=== PATIENT | female | born 1955 | race Caucasian/White ===

== ENCOUNTER 2018-07-26 07:20 | Inpatient (IN) ==
[2018-07-26] MEDS ORDERED: IOPAMIDOL 100 ML BOTTLE IV ONE (07:21)
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
[2018-07-26] MEDS ORDERED: ALPRAZolam 0.5 MG TABLET PO ONE (07:43)
[2018-07-26] MEDS ORDERED: PROMETHAZINE 25 MG/ML VIAL IV ONE (07:43)
[2018-07-26] MEDS ORDERED: LACTATED RINGERS 1,000 ML IV ONE (07:43)
[2018-07-26] MEDS ORDERED: cloNIDine TTS 2 1 PATCH PATCH TD ONE (07:45)
[2018-07-26 08:29] LABS: Basophils # (Auto) 0.1 K/mcL (0.0-0.3); Basophils % (Auto) 0.7 % (0.0-2.0); Eosinophils # (Auto) 0.1 K/mcL (0.0-0.7); Eosinophils % (Auto) 0.8 % (0.0-7.0); Granulocytes % (Auto) 77.4 % (38.0-78.0); Lymphocytes # (Auto) 2.2 K/mcL (1.5-4.8); Lymphocytes % (Auto) 17.6 % (15.5-49.0); Mean Cell Volume 93.2 fL (80.0-100.0); Mean Corpuscular HGB Conc 34.3 g/dL (31.0-36.0); Mean Corpuscular Hemoglobin 31.9 pg (26.0-34.0); Monocytes # (Auto) 0.4 K/mcL (0.1-0.9); Monocytes % (Auto) 3.5 % (1.0-12.0); Platelet Count 350 K/mcL (140-440); RBC 4.19 M/mcL (4.00-5.20); Red Cell Distribution Width 13.9 % (11.5-14.5)
[2018-07-26] MEDS ORDERED: ONDANSETRON 4 MG/2 ML VIAL IV ONE ×2 (08:36→10:06)
[2018-07-26 08:50] LABS: ALT/SGPT 8 U/l (0-40); Albumin 4.5 gm/dL (3.2-5.2); Albumin/Globulin Ratio 1.5 (1.0-2.3); Alkaline Phosphatase 83 U/L (39-117); Blood Urea Nitrogen 8 mg/dl (8-23)
[2018-07-26] MEDS ORDERED: buPROPion 100 MG TABLET PO ONE (08:50)
[2018-07-26] MEDS ORDERED: NICOTINE 21 MG PATCH TOPICAL ONE (08:51)
[2018-07-26 10:34] LABS: Appearance,Urine CLEAR; Bilirubin,Urine NEG (NEG); Color,Urine YELLOW; Glucose,Urine (UA) NEGATIVE (NEG); Leukocyte Esterase,Urine NEG /uL (NEG); Protein,Urine NEG (NEG); Specific Gravity,Urine 1.013 (1.000-1.035); Urine Blood NEG mg/dL (<0.03); Urobilinogen,Urine NEG (NEG)
[2018-07-26] MEDS ORDERED: PROCHLORPERAZINE 10 MG/2 ML VIAL IV ONE (10:59)
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
[2018-07-26] MEDS ORDERED: SCOPOLAMINE 1 PATCH PATCH TOPICAL ONE (12:51)
--- NOTE | 2018-07-26 14:15 | Ultrasound Report ---
History: Right upper quadrant pain FINDINGS: Within the lumen of the gallbladder there are three small oval-shaped noncalcified nodules adherent to the wall. Two of them are located anteriorly and measured 2 x 3 mm each. One is located posteriorly and also measures 2 x 3 mm. The wall is 2 mm in thickness and the patient was nontender while scanning over the gallbladder. No calcified stones or sludge are present within the lumen. Common bile duct measures up to 4 mm which is normal. The liver is normal in size and homogeneous. Doppler shows normal blood flow in the hepatic and portal veins. The pancreas is normal in size shape and contour. No ascites is present. IMPRESSION: Three small polyps within the gallbladder. The exam is otherwise normal. Dr. Mejia was called with the results Interpreted and Authenticated by: Víctor Demarco 07/26/18
[2018-07-26] MEDS ORDERED: HALOPERIDOL LACTATE 5 MG/ML VIAL IV ONE (14:25)
[2018-07-26] MEDS ORDERED: ACETAMINOPHEN 325 MG TABLET PO ONE (18:44)
--- NOTE | 2018-07-26 18:47 | Internal Med History&Physical ---
Medical - H&P: [facility] Patient information: Note initiated : 07/26/18 at 6:43 pm Service Date, if different from initiated Date: [] Patient: Nida Ramirez a 63 y/o F admitted on for anxiety. Chief Complaint: [] History of present illness: Ms. Ramirez is a 63 year old F With history of chronic pain anxiety who comes in with nausea vomiting intractable progressing since Sunday. She said she woke up this morning she typically does very nauseous could not get it under control. She said it started Sunday. With no inciting causes that she is aware of. She says she has had nausea vomiting more or less chronically since being taken off Dilaudid and diazepam and Flexeril in December when she ran out of her medications because she stopped going to her primary care provider and is trying to find a new one. In the ER they are unable to get her nausea vomiting under control with multiple medications she is found to have a little bit of lactate elevation likely from all the nausea vomiting fluid deprivation. A CT abdomen pelvis is done which is no acute pathology. She does report early satiety may be some bloating. She denies any vertigo no diarrhea she has diffuse achy abdominal pain she reports mostly from muscle pain from vomiting. She has been able to keep anything down for several days. She Uses marijuana daily. She has not been on any anxiety medications at home or pain medications at home for some time. She seems to have some temporary improvement while I was visiting her in the ED at this point. Review of Systems: Positive for nausea vomiting headache fever abdominal pain that she attributes to muscle strain. denies chills/chest pain/cough/dyspnea/diarrhea. Per minute 10 point review of systems reviewed and negative Medical - H&P: PMH Medical history: Medical History (Last Reviewed 05/15/18 @ 14:42 by Marciano Wilson PA-C) Gastroenteritis (Acute) HTN (hypertension) (Chronic) Chronic pain Anxiety History of basal cell carcinoma on the scalp Asthma Surgical history: Hysterectomy Shoulder neck surgery Family history Mother diabetes and heart disease Father had skin cancer Social history: One pack per day, is now quitting Denies alcohol use Use marijuana nightly This bursa of Medical - H&P: Meds Home Medications Medication Instructions Recorded Confirmed Type propranolol 80 mg tablet 40 mg PO BID #60 tab 06/13/18 11/23/18 Rx Lisinopril [Zestril] 20 mg PO DAILY 30 Days #30 tab 06/29/18 07/26/18 Rx hydrALAZINE [Apresoline] 10 mg PO TID 30 Days #90 tab 06/29/18 07/26/18 Rx hydrOXYzine HCL [Hydroxyzine HCl] 50 mg PO BID 30 Days #60 tab 06/29/18 Rx Allergies Allergy/AdvReac Type Severity Reaction Status Date / Time baclofen Allergy Intermediate Itching Verified 05/15/18 13:55 morphine Allergy Intermediate Itching Verified 04/28/18 21:10 Sulfa (Sulfonamide Allergy Intermediate Itching Verified 04/28/18 21:09 Antibiotics) codeine Allergy Other Verified 05/15/18 13:55 diphenhydramine Allergy Other Verified 05/15/18 13:55 [From Benadryl] tramadol [From Ultram] Allergy Other Verified 05/15/18 13:55 adhesive tape AdvReac Other Verified 05/15/18 13:55 Medical - H&P: Exam - Constitutional Vitals: Temp Pulse Resp BP Pulse Ox 96.9 F L 83 18 158/78 97 07/26/18 07:21 07/26/18 15:34 07/26/18 07:21 07/26/18 14:46 07/26/18 15:34 Exam: General: Alert, Awake, No acute Distress Eyes/N/T: EOMI, pupils equal round reactive to light, dry mucous membranes Head/Neck: neck supple, normocephalic atraumatic CV: RRR, No murmurs, normal s1/s2 Pulm: Clear b/l, no wheezing/rhonchi/rales Abd: soft, tenderness in the epigastrium that she attributes to muscle strain from vomiting, +BS x4 Ext: no clubbing/cyanosis/edema Neuro: Alert, no focal deficits, moves all extremities Skin: warm/dry Medical - H&P: Reslt - Labs CBC & Chem 7: 07/26/18 07:52 07/26/18 07:52 Labs: Short CBC 07/26/18 Range/Units 07:52 WBC 12.6 H (4.5-11.0) K/mcL Hgb 13.4 (12.0-15.0) g/dL Hct 39.1 (36.0-48.0) % Plt Count 350 (140-440) K/mcL BMP 07/26/18 07:52 Sodium 138 Potassium 3.7 Chloride 100 Carbon Dioxide 20 L BUN 8 Creatinine 0.9 Glucose 133 H Calcium 10.1 Cardiac Enzymes 07/26/18 Range/Units 07:52 Troponin T < 0.01 (0-0.03) ng/ml Liver Function 07/26/18 Range/Units 07:52 Total Bilirubin 0.5 (0.0-1.0) mg/dL AST 14 (0-37) U/l ALT 8 (0-40) U/l Alkaline Phosphatase 83 (39-117) U/L Albumin 4.5 (3.2-5.2) gm/dL Urine 07/26/18 Range/Units 09:49 Urine Color Yellow Urine Appearance Clear Urine pH 8.0 (5.0-9.0) Ur Specific [place] 1.013 (1.000-1.035) Urine Protein Neg (NEG) mg/dL Urine Glucose (UA) Negative (NEG) mg/dL - Impressions Abdominal ultrasound and terminal and pelvis CT unremarkable for any acute pathology Medical - H&P: A/P - Narrative A/P Narrative: A: *Intractable nausea vomiting: Differential includes gastroparesis versus narcotic withdrawal versus cyclic vomiting including cannabis hyperemesis *Severe anxiety: Has been off anxiety medications for some time, unknown if she is obtaining elsewhere *Hypertension: *Chronic pain: Has been off pain medications for some time, unknown if she is obtaining them elsewhere *Tobacco abuse: Now quitting * P: -IV fluid hydration -Antiemetics, amitriptyline and scope patch included -PRN pain medications including Toradol -Gastric emptying study pending -PRN Ativan - - -ppx: Lovenox
[2018-07-26] MEDS ORDERED: AMITRIPTYLINE 25 MG TABLET PO ONE (19:16)
[2018-07-26] MEDS ORDERED: KETOROLAC 30 MG/ML VIAL IV ONE (19:16)
[2018-07-26] MEDS ORDERED: DEXTROSE 5%-1/2NS 1,000 ML IV SCH (19:16)
[2018-07-26] MEDS ORDERED: cloNIDine HCL 0.1 MG TABLET PO PRN (19:16)
[2018-07-26] MEDS ORDERED: PROMETHAZINE 25 MG/ML VIAL IM PRN (19:16)
[2018-07-26] MEDS ORDERED: PROCHLORPERAZINE 25 MG SUPP.RECT PR PRN (19:16)
[2018-07-26] MEDS ORDERED: ONDANSETRON 4 MG/2 ML VIAL IV PRN (19:16)
[2018-07-26] MEDS ORDERED: PROMETHAZINE 25 MG TABLET PO PRN (19:16)
[2018-07-26] MEDS ORDERED: IPRATROPIUM/ALBUTEROL 3 ML AMPUL.NEB NEB PRN (19:16)
[2018-07-26] MEDS: SCOPOLAMINE 1 PATCH PATCH TOPICAL SCH (19:25)
[2018-07-26] MEDS: PROMETHAZINE 25 MG/ML VIAL IV PRN (19:42)
--- NOTE | 2018-07-26 20:26 | Cat Scan Report ---
CLINICAL INFORMATION: History: Upper abdominal pain with nausea and vomiting COMPARISON: None. TECHNIQUE: Following injection of intravenous contrast the patient was scanned during the portal venous phase from the diaphragm through the symphysis pubis. Sagittal and coronal reformats were created.. FINDINGS: The liver and spleen are normal in size and continues. Small hiatus hernia. The gallbladder IMPRESSION: , Adrenals and kidneys are normal. The aorta is normal in caliber. The appendix is borderline thickened measuring up to 7 mm in diameter. There is an appendicolith at the orifice of the appendix. The surrounding fat is not inflamed and there is no abscess or free fluid. The bowel gas pattern is otherwise normal. No evidence of diverticulitis or inflammatory bowel disease. There is no adenopathy or ascites are present within the abdomen or pelvis. Moderate amount calcified plaque is present in the common iliac arteries with plaque also seen in the distal abdominal aorta. 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 IMPRESSION: borderline thickened appendix which could be normal variant or early onset appendicitis. Dr. Mejia was called with the results Interpreted and Authenticated by: Víctor Demarco 07/26/18
[2018-07-26] MEDS: PROPRANOLOL 40 MG TABLET PO SCH (20:36)
[2018-07-26] MEDS: LORazepam 2 MG/ML VIAL IV PRN (20:36)
[2018-07-26] MEDS: hydrOXYzine 25 MG TABLET PO PRN (20:38)
[2018-07-26] MEDS: hydrALAZINE 20 MG/ML VIAL IV PRN (20:39)
[2018-07-26] MEDS: FAMOTIDINE/PF 20 MG/2 ML VIAL IV SCH (20:39)
[2018-07-26] MEDS: hydrALAZINE 10 MG TABLET PO SCH (20:45)
[2018-07-26] MEDS: 0.9 % SODIUM CHLORIDE 10 ML SYRINGE IV SCH (20:45)
[2018-07-26] MEDS: DOCUSATE SODIUM 100 MG CAPSULE PO SCH (20:45)
[2018-07-26 20:47] LABS: Amphetamine Screen,Urine NONE DETECTED (NONDETECTED); Benzodiazepines Screen,Urine NONE DETECTED (NONDETECTED); Cocaine Screen,Urine NONE DETECTED (NONDETECTED); Opiate Screen,Urine NONE DETECTED (NONDETECTED); Oxycodone, Urine Screen NONE DETECTED (NONDETECTED)
[2018-07-26 20:57] LABS: ALT/SGPT 8 U/l (0-40); Albumin 3.9 gm/dL (3.2-5.2); Albumin/Globulin Ratio 1.4 (1.0-2.3); Alkaline Phosphatase 75 U/L (39-117); Bilirubin,Direct < 0.2 mg/dL (0.0-0.3); Blood Urea Nitrogen 8 mg/dl (8-23); Gamma Glutamyl Transpeptidase 15 U/L (5-36); Uric Acid 3.4 mg/dL (2.5-8.0)
[2018-07-26] MEDS ORDERED: POTASSIUM PHOSPHATE 20 MEQ in DEXTROSE 5% IN WATER 250 ML IV ONE (21:50)
[2018-07-27] MEDS ORDERED: POTASSIUM PHOSPHATE 66 MEQ/15 ML VIAL IV ONE (00:33)
[2018-07-27] MEDS ORDERED: KETOROLAC 15 MG/ML VIAL IV PRN (02:00)
[2018-07-27] MEDS: 0.9 % SODIUM CHLORIDE 10 ML SYRINGE IV SCH ×3 (05:15→20:37)
[2018-07-27] MEDS: LORazepam 2 MG/ML VIAL IV PRN ×3 (06:02→20:35)
[2018-07-27 06:41] LABS: Basophils # (Auto) 0 K/mcL (0.0-0.3); Basophils % (Auto) 0.4 % (0.0-2.0); Eosinophils # (Auto) 0 K/mcL (0.0-0.7); Eosinophils % (Auto) 0 % (0.0-7.0); Granulocytes % (Auto) 75.4 % (38.0-78.0); Lymphocytes # (Auto) 2.1 K/mcL (1.5-4.8); Lymphocytes % (Auto) 16.3 % (15.5-49.0); Mean Cell Volume 94.8 fL (80.0-100.0); Mean Corpuscular HGB Conc 34.1 g/dL (31.0-36.0); Mean Corpuscular Hemoglobin 32.3 pg (26.0-34.0); Monocytes % (Auto) 7.9 % (1.0-12.0); Platelet Count 303 K/mcL (140-440); Red Cell Distribution Width 13.9 % (11.5-14.5)
[2018-07-27 07:14] LABS: ALT/SGPT 7 U/l (0-40); Albumin 3.9 gm/dL (3.2-5.2); Albumin/Globulin Ratio 1.6 (1.0-2.3); Alkaline Phosphatase 74 U/L (39-117); Bilirubin,Direct < 0.2 mg/dL (0.0-0.3); Blood Urea Nitrogen 8 mg/dl (8-23); Gamma Glutamyl Transpeptidase 16 U/L (5-36); Uric Acid 3.1 mg/dL (2.5-8.0)
--- NOTE | 2018-07-27 07:52 | Internal Med Progress Note ---
Medical - PN: Subj Patient information: Note initiated : 07/27/18 at 7:51 am Service Date, if different from initiated Date: [] Patient: Nida Ramirez a 63 y/o F admitted on 07/26/18 for anxiety. Chief Complaint: [] Interval history: Ms. Ramirez is a 63 year old F With history of chronic pain anxiety who comes in with nausea vomiting intractable progressing since Sunday. She said she woke up this morning she typically does very nauseous could not get it under control. She said it started Sunday. With no inciting causes that she is aware of. She says she has had nausea vomiting more or less chronically since being taken off Dilaudid and diazepam and Flexeril in December when she ran out of her medications because she stopped going to her primary care provider and is trying to find a new one. In the ER they are unable to get her nausea vomiting under control with multiple medications she is found to have a little bit of lactate elevation likely from all the nausea vomiting fluid deprivation. A CT abdomen pelvis is done which is no acute pathology. She does report early satiety may be some bloating. She denies any vertigo no diarrhea she has diffuse achy abdominal pain she reports mostly from muscle pain from vomiting. She has been able to keep anything down for several days. She Uses marijuana daily. She has not been on any anxiety medications at home or pain medications at home for some time. She seems to have some temporary improvement while I was visiting her in the ED at this point. 07/27 Last episode of nausea vomiting was middle the night. Did get some sleep last night. Feeling better does have some nausea. Does have chronic cough. And complains of a mild headache. Denies getting any narcotics or benzodiazepines on the street. Review of Systems: denies fever/chills/chest or abdominal pain/cough/dyspnea/diarrhea. Otherwise see above. - Constitutional Vitals: Vital Signs Temp Pulse Resp BP Pulse Ox 98.8 F 75 16 105/59 91 07/27/18 07:00 07/27/18 03:00 07/27/18 07:00 07/27/18 07:00 07/27/18 07:00 Period Temp Pulse Resp BP Sys/Mckinnon Pulse Ox Last 24 Hr 98.1 F-101 F 61-95 16-22 105-168/53-128 91-100 Intake and Output 11/23/18 11/24/18 11/24/18 21:59 05:59 13:59 Intake Total 304.5455 / 304.5455 Output Total 200 / 200 650 / 650 Balance -200 / -200 -345.4545 / -345.4545 Weight 60.328 kg Intake & Output: Intake & Output 07/26/18 07/27/18 07/27/18 21:59 05:59 13:59 Intake Total 304.5455 / 304.5455 Output Total 200 / 200 650 / 650 Balance -200 / -200 -345.4545 / -345.4545 Weight 60.328 kg Intake: IV 254.5455 / 254.5455 Oral 50 / 50 Output: Void Amount 200 / 200 550 / 550 Emesis 100 / 100 Other: Urine Color Bright Yellow Dark Yellow Urine Odor Normal Normal # Voids 1 Exam: General: Alert, Awake, No acute Distress Eyes/N/T: EOMI, Head/Neck: neck supple, CV: RRR, No murmurs, normal s1/s2 Pulm: Clear b/l, no wheezing/rhonchi/rales Abd: soft, MILD tenderness in the epigastrium that she attributes to muscle strain from vomiting, +BS x4 Ext: no clubbing/cyanosis/edema Neuro: Alert, no focal deficits, moves all extremities Skin: warm/dry Medical - PN: Obj Da - Labs CBC & Chem 7: 07/27/18 05:17 07/27/18 05:17 Labs: Abnormal Lab Results 07/27/18 07/27/18 07/26/18 05:17 05:17 20:00 WBC 12.8 H RBC 3.70 L Hct 35.1 L Gran # 9.7 H [place] # (Auto) 1.0 H VBG Lactic Acid Potassium 3.2 L Carbon Dioxide 21 L 16 L Anion Gap 20.0 H Glucose 128 H 132 H Phosphorus 2.5 L Urine Ketones U Marijuana (THC) Screen 07/26/18 07/26/18 07/26/18 19:16 09:49 07:52 WBC RBC Hct Gran # [place] # (Auto) VBG Lactic Acid 2.4 H Potassium Carbon Dioxide Anion Gap Glucose Phosphorus Urine Ketones 20 A U Marijuana (THC) Screen Suspect positive A 07/26/18 07/26/18 07:52 07:52 WBC 12.6 H RBC Hct Gran # 9.8 H [place] # (Auto) VBG Lactic Acid Potassium Carbon Dioxide 20 L Anion Gap 18.0 H Glucose 133 H Phosphorus Urine Ketones U Marijuana (THC) Screen Meds: Medications Acetaminophen (Tylenol) 650 mg PO Q6HP PRN PRN Reason: PAIN/FEVER > 101 Albuterol/Ipratropium (Duoneb) 3 ml NEB Q4HRT PRN PRN Reason: wheezing Clonidine HCl (Catapres) 0.1 mg PO Q6HP PRN PRN Reason: Hypertension Docusate Sodium (Colace) 100 mg PO BID [facility] Last Admin: 07/26/18 20:45 Dose: Not Given Enoxaparin Sodium (Lovenox) 40 mg SQ DAILY [facility] Famotidine (Pepcid) 20 mg IV Q12 [facility] Last Admin: 07/26/18 20:39 Dose: 20 mg Hydralazine HCl (Apresoline) 10 mg IV Q4-6HP PRN PRN Reason: Hypertension Last Admin: 07/26/18 20:39 Dose: 10 mg Hydralazine HCl (Apresoline) 10 mg PO TID [facility] Last Admin: 07/26/18 20:45 Dose: Not Given Hydroxyzine HCl (Atarax) 50 mg PO BIDP PRN PRN Reason: Anxiety Last Admin: 07/26/18 20:38 Dose: 50 mg Dextrose/Sodium Chloride (Dextrose 5%-1/2ns Iv Solution) 1,000 mls @ 75 mls/hr IV .[id number] [facility] Last Admin: 07/26/18 19:25 Dose: 75 mls/hr Ketorolac Tromethamine (Toradol) 15 mg IV Q6HP PRN PRN Reason: Pain Stop: 07/28/18 01:59 Lisinopril (Zestril) 20 mg PO DAILY [facility] Lorazepam (Ativan) 0.5 mg IV Q4HP PRN PRN Reason: ANXIETY/SEDATION Last Admin: 07/27/18 06:02 Dose: 0.5 mg Nicotine (Nicoderm) 21 mg TOPICAL DAILY@1000 TRINY Ondansetron HCl (Zofran) 4 mg IV Q4HP PRN PRN Reason: Nausea And Vomiting Last Admin: 07/27/18 06:03 Dose: 4 mg Oxycodone/Acetaminophen (Percocet 5-325 Mg) 1 tab PO Q4HP PRN PRN Reason: PAIN LEVEL 3-6 Prochlorperazine Maleate (Compazine) 12.5 mg [place] Q12HP PRN PRN Reason: Nausea And Vomiting Promethazine HCl (Phenergan) 12.5 mg PO Q6HP PRN PRN Reason: Nausea And Vomiting Promethazine HCl (Phenergan) 12.5 mg IV Q6HP PRN PRN Reason: Nausea And Vomiting Last Admin: 07/26/18 19:42 Dose: 12.5 mg Propranolol HCl (Inderal) 40 mg PO BID [facility] Last Admin: 07/26/18 20:36 Dose: 40 mg Scopolamine (Transderm-Scop) 1 patch TOPICAL Q72H [facility] Last Admin: 07/26/18 19:25 Dose: Not Given Sodium Chloride (Saline Flush) 10 ml IV Q8 [facility] Last Admin: 07/27/18 05:15 Dose: Not Given Medical - PN: A/P - Time Spent With Patient Total time spent is greater than 50% in coordination of care (as documented) at patient's floor/unit and/or counseling patient: - Narrative A/P Narrative: A: *Intractable nausea vomiting: Differential includes gastroparesis versus cyclic vomiting including including cannabis hyperemesis -CT abd/pelv no acute pathology or evidence of GOO. -emesis was bilious in nature *Severe anxiety: Has been off anxiety medications for some time, unknown if she is obtaining elsewhere *Hypertension: *Chronic pain: Has been off pain medications for some time, unknown if she is obtaining them elsewhere *Tobacco abuse: Now quitting * P: -IV fluid hydration -Antiemetics, amitriptyline and scope patch included -PRN pain medications including Toradol -Gastric emptying study pending -PRN Ativan -npo -smoking cessation counseling, nicotine patch -ppx: Lovenox Medical - PN: Qual - Stroke Symptom Onset Unknown: No - VTE Deep Vein Thrombosis/Pulmonary Embolism Present on Admission: No
[2018-07-27] MEDS ORDERED: PROCHLORPERAZINE 10 MG/2 ML VIAL IV PRN (08:37)
[2018-07-27] MEDS: ENOXAPARIN 40 MG/0.4 ML SYRINGE SQ SCH (08:54)
[2018-07-27] MEDS: hydrALAZINE 10 MG TABLET PO SCH (08:55)
[2018-07-27] MEDS: DOCUSATE SODIUM 100 MG CAPSULE PO SCH ×2 (08:55→20:36)
[2018-07-27] MEDS: PROPRANOLOL 40 MG TABLET PO SCH ×2 (08:55→20:36)
[2018-07-27] MEDS: FAMOTIDINE/PF 20 MG/2 ML VIAL IV SCH ×2 (08:55→20:36)
[2018-07-27] MEDS: DEXTROSE 5%-NS W/20MEQ KCL 1,000 ML IV SCH ×2 (08:59→22:18)
[2018-07-27] MEDS ORDERED: LISINOPRIL 20 MG TABLET PO SCH (09:00)
[2018-07-27] MEDS: NICOTINE 21 MG PATCH TOPICAL SCH (09:06)
[2018-07-27] MEDS: PROMETHAZINE 25 MG/ML VIAL IV PRN (09:13)
--- NOTE | 2018-07-27 11:13 | Discharge Summary ---
Medical - DS: Prov Patient information: Note initiated : 07/27/18 at 11:04 am Service Date, if different from initiated Date: [] Patient: Nida Ramirez 63 y/o F admitted on 07/26/18 for anxiety. Chief Complaint: [] Date of admission: 07/26/18 19:13 Consults: 07/26/18 Consult to Physician [CONS] Stat Comment: Consulting Provider: Harlan Leija Reason For Exam: Physician to Consult Medical - DS: Meds - Discharge Medications Prescriptions: Famotidine [Pepcid AC] 20 mg PO DAILY #30 tab LORazepam [Ativan] 1 mg PO Q8HP PRN #30 tab PRN Reason: Anxiety Nicotine [Nicotine Patch] 1 each TD DAILY #30 patch.dysq Ondansetron HCl [Zofran ODT] 4 mg SL Q4HP PRN #40 tab PRN Reason: Nausea Active and Home Medications: Home Medications propranolol 80 mg tablet 40 mg PO BID #60 tab 02/13/18 [Rx Confirmed 07/26/18 Last Taken 07/26/18 04:30] Lisinopril [Zestril] 20 mg PO DAILY 30 Days #30 tab 06/29/18 [Rx Confirmed 07/26 Last Taken 07/26/18 04:30] hydrALAZINE [Apresoline] 10 mg PO TID 30 Days #90 tab 06/29/18 [Rx Confirmed Last Taken 07/26/18 04:00] hydrOXYzine HCL [Hydroxyzine HCl] 50 mg PO BID 30 Days #60 tab 06/29/18 [Rx Confirmed 07/26/18 Last Taken 07/26/18 04:30] Home Medications propranolol 80 mg tablet 40 mg PO BID #60 tab 02/13/18 [Rx Confirmed 07/26/18 Last Taken 07/26/18 04:30] Lisinopril [Zestril] 20 mg PO DAILY 30 Days #30 tab 06/29/18 [Rx Confirmed 07/26 Last Taken 07/26/18 04:30] hydrOXYzine HCL [Hydroxyzine HCl] 50 mg PO BID 30 Days #60 tab 06/29/18 [Rx Confirmed 07/26/18 Last Taken 07/26/18 04:30] Famotidine [Pepcid AC] 20 mg PO DAILY #30 tab 11/24/18 [Rx Last Taken Unknown] LORazepam [Ativan] 1 mg PO Q8HP PRN #30 tab 07/27/18 [Rx Last Taken Unknown] Ondansetron HCl [Zofran ODT] 4 mg SL Q4HP PRN #40 tab 07/27/18 [Rx Last Taken Unknown] Nicotine [Nicotine Patch] 1 each TD DAILY #30 patch.dysq 07/28/18 [Rx Last Taken Unknown] Lisinopril [Zestril] 20 mg PO DAILY tablet 07/30/18 [Rx Last Taken Unknown] Medical - DS: Hosp Hospital course: Ms. Ramirez is a 63 year old F With history of chronic pain anxiety who comes in with nausea vomiting intractable progressing since Sunday. She said she woke up this morning she typically does very nauseous could not get it under control. She said it started Sunday. With no inciting causes that she is aware of. She says she has had nausea vomiting more or less chronically since being taken off Dilaudid and diazepam and Flexeril in December when she ran out of her medications because she stopped going to her primary care provider and is trying to find a new one. In the ER they are unable to get her nausea vomiting under control with multiple medications she is found to have a little bit of lactate elevation likely from all the nausea vomiting fluid deprivation. A CT abdomen pelvis is done which is no acute pathology. She does report early satiety may be some bloating. She denies any vertigo no diarrhea she has diffuse achy abdominal pain she reports mostly from muscle pain from vomiting. She has been able to keep anything down for several days. She Uses marijuana daily. She has not been on any anxiety medications at home or pain medications at home for some time. She seems to have some temporary improvement while I was visiting her in the ED at this point. 07/27 Last episode of nausea vomiting was middle the night. Did get some sleep last night. Feeling better does have some nausea. Does have chronic cough. And complains of a mild headache. Denies getting any narcotics or benzodiazepines on the street. 07/28 Refused amitriptyline last night. Did not take this morning. Describes some nausea throughout night. Nurse reports no real emesis just spit up. 07/29 Patient became confused last night and had visual hallucinations. With agitations. But finally fell asleep. Woke up feeling much improved. She states she felt better than she has in a long time. First good night sleep in a long time. No nausea/vomiting this morning. No headaches. 07/30 Became agitated again in the evening, apparently some little bit hallucinations in the middle of night. Patient feels good today. Very minor episode of nausea but quickly went away. Patient feels that she had more of an adverse reaction from amitriptyline than any of the other medications. Discharge diagnosis: Intractable nausea vomiting psychogenic, severe anxiety pression Secondary discharge diagnosis: Hypertension chronic pain tobacco abuse - Time Spent with Patient Total time spent providing and/or coordinating discharge services: Greater than 30 minutes Medical - DS: Exam - Constitutional Vitals: Vital Signs Temp Pulse Pulse Resp BP BP Pulse Ox 07/27/18 07:00 98.8 F 16 105/59 91 07/27/18 03:00 99.4 F H 75 18 140/68 93 07/26/18 23:16 98.1 F 78 18 109/53 95 07/26/18 19:16 98.7 F 80 22 167/80 99 07/26/18 19:15 101 F H 83 18 158/78 97 07/26/18 19:02 101 F H 07/26/18 15:34 83 97 07/26/18 14:54 83 94 07/26/18 14:46 74 158/78 95 07/26/18 14:44 73 149/77 96 07/26/18 13:35 76 156/68 95 07/26/18 13:31 77 156/68 92 07/26/18 13:17 91 H 97 07/26/18 13:15 72 163/85 97 07/26/18 12:31 64 155/80 97 07/26/18 12:16 75 168/128 99 07/26/18 12:02 95 H 164/89 96 07/26/18 11:50 76 95 07/26/18 11:46 77 161/78 99 07/26/18 11:31 79 161/78 93 07/26/18 11:24 62 138/60 100 Intake and Output 07/26/18 07/27/18 07/27/18 21:59 05:59 13:59 Intake Total 304.5455 / 304.5455 Output Total 200 / 200 650 / 650 Balance -200 / -200 -345.4545 / -345.4545 Intake: IV 254.5455 / 254.5455 Oral 50 / 50 Output: Void Amount 200 / 200 550 / 550 Emesis 100 / 100 Other: Urine Color Bright Yellow Dark Yellow Urine Odor Normal Normal # Voids 1 Weight 60.328 kg Medical - DS: Data Labs on day of discharge: Labs from last 24 hours 07/27/18 07/27/18 07/26/18 05:17 05:17 20:00 WBC 12.8 H RBC 3.70 L Hgb 12.0 Hct 35.1 L MCV 94.8 MCH 32.3 MCHC 34.1 RDW 13.9 Plt Count 303 MPV 9.0 Gran % 75.4 Lymph % (Auto) 16.3 [place] % (Auto) 7.9 Eos % (Auto) 0 Baso % (Auto) 0.4 Gran # 9.7 H Lymph # (Auto) 2.1 [place] # (Auto) 1.0 H Eos # (Auto) 0 Baso # (Auto) 0 VBG Lactic Acid Sodium 137 134 Potassium 3.7 3.2 L Chloride 101 98 Carbon Dioxide 21 L 16 L Anion Gap 15.0 20.0 H BUN 8 8 Creatinine 1.0 0.9 GFR Calculation 61 69 Glucose 128 H 132 H Uric Acid 3.1 3.4 Calcium 8.7 9.1 Phosphorus 4.2 2.5 L Magnesium 2.1 1.9 Total Bilirubin 0.4 0.5 Direct Bilirubin < 0.2 < 0.2 GGT 16 15 AST 12 14 ALT 7 8 Alkaline Phosphatase 74 75 Lactate Dehydrogenase 246 236 Troponin T Total Protein 6.3 6.7 Albumin 3.9 3.9 Globulin 2.4 2.8 Albumin/Globulin Ratio 1.6 1.4 Triglycerides 75 72 Lipase Urine Opiates Screen Ur Opiates Confirm Ur Oxycodone Screen Urine Methadone Screen Ur Methadone Confirm Ur Barbiturates Screen Ur Barbiturate Confirm Ur Phencyclidine Scrn Urine PCP Confirm Ur Amphetamines Screen U Amphetamines Confirm U Benzodiazepines Scrn U Benzodiazepine Confm Urine Cocaine Screen Urine Cocaine Confirm U Cannabinoids Confirm U Marijuana (THC) Screen 07/26/18 07/26/18 07/26/18 19:16 07:52 07:52 WBC RBC Hgb Hct MCV MCH MCHC RDW Plt Count MPV Gran % Lymph % (Auto) [place] % (Auto) Eos % (Auto) Baso % (Auto) Gran # Lymph # (Auto) [place] # (Auto) Eos # (Auto) Baso # (Auto) VBG Lactic Acid 2.4 H Sodium Potassium Chloride Carbon Dioxide Anion Gap BUN Creatinine GFR Calculation Glucose Uric Acid Calcium Phosphorus Magnesium Total Bilirubin Direct Bilirubin GGT AST ALT Alkaline Phosphatase Lactate Dehydrogenase Troponin T < 0.01 Total Protein Albumin Globulin Albumin/Globulin Ratio Triglycerides Lipase Urine Opiates Screen None detected Ur Opiates Confirm Not Reportable Ur Oxycodone Screen None detected Urine Methadone Screen None detected Ur Methadone Confirm Not Reportable Ur Barbiturates Screen None detected Ur Barbiturate Confirm Not Reportable Ur Phencyclidine Scrn None detected Urine PCP Confirm Not Reportable Ur Amphetamines Screen None detected U Amphetamines Confirm Not Reportable U Benzodiazepines Scrn None detected U Benzodiazepine Confm Not Reportable Urine Cocaine Screen None detected Urine Cocaine Confirm Not Reportable U Cannabinoids Confirm Not Reportable U Marijuana (THC) Screen Suspect positive A 07/26/18 07:52 WBC RBC Hgb Hct MCV MCH MCHC RDW Plt Count MPV Gran % Lymph % (Auto) [place] % (Auto) Eos % (Auto) Baso % (Auto) Gran # Lymph # (Auto) [place] # (Auto) Eos # (Auto) Baso # (Auto) VBG Lactic Acid Sodium Potassium Chloride Carbon Dioxide Anion Gap BUN Creatinine GFR Calculation Glucose Uric Acid Calcium Phosphorus Magnesium Total Bilirubin Direct Bilirubin GGT AST ALT Alkaline Phosphatase Lactate Dehydrogenase Troponin T Total Protein Albumin Globulin Albumin/Globulin Ratio Triglycerides Lipase 44 Urine Opiates Screen Ur Opiates Confirm Ur Oxycodone Screen Urine Methadone Screen Ur Methadone Confirm Ur Barbiturates Screen Ur Barbiturate Confirm Ur Phencyclidine Scrn Urine PCP Confirm Ur Amphetamines Screen U Amphetamines Confirm U Benzodiazepines Scrn U Benzodiazepine Confm Urine Cocaine Screen Urine Cocaine Confirm U Cannabinoids Confirm U Marijuana (THC) Screen Medical - DS: A/P - Patient/Caregiver Discharge Instructions Activity: increase activity as tolerated Diet: Low Fat (small frequent meals, low fat, only soluble fiber) Prescriptions: Famotidine [Pepcid AC] 20 mg PO DAILY #30 tab LORazepam [Ativan] 1 mg PO Q8HP PRN #30 tab PRN Reason: Anxiety Nicotine [Nicotine Patch] 1 each TD DAILY #30 patch.dysq Ondansetron HCl [Zofran ODT] 4 mg SL Q4HP PRN #40 tab PRN Reason: Nausea - Follow up Plan Follow up with: Nahed Puckett MD [Physician] - 08/05/18 11:00 am Disposition: Xfer Psychiatric Hosp Prognosis: Fair Rehab Potential: Fair Overall status at discharge: patient is progressing back to baseline Medical - DS: Qual - VTE Deep Vein Thrombosis/Pulmonary Embolism Present on Admission: No
[2018-07-27] MEDS: METOCLOPRAMIDE 10 MG/2 ML VIAL IV SCH ×3 (12:07→20:35)
[2018-07-27] MEDS ORDERED: LORazepam 1 MG TABLET PO PRN (12:46)
--- NOTE | 2018-07-27 12:48 | General Surgery Consult Note ---
History of Present Illness Patient information: Note initiated : 07/27/18 at 12:42 pm Service Date, if different from initiated Date: [] Patient: Nida Ramirez 63 y/o F admitted on 07/26/18 for anxiety. Chief Complaint: [] Reason for consult: abdominal pain Requesting physician: Harlan Leija History of present illness: 63 -year-old female who was admitted with severe anxiety with episodic nausea vomiting. She also has abdominal pain which she attributes to recurrent retching. The patient's symptoms date back to December. At that time she was taking Dilaudid, diazepam, Flexeril for pain and severe anxiety.. She was dismissed from her primary care physician's office for an unknown reason and has been unable to get medication. She has been seen in the emergency room for Medicare clinic at this facility at least 8 times with the same complaint. her complaint primarily is extreme anxiety which leads to episodic retching without emesis of primarily clear fluid and some bilious vomiting. During each visit in the emergency room or the outpatient clinic she responds appropriately to anxiolytic medications and mild analgesics. Her symptoms recur when she is out of the medications. She presents this time with similar History. She is presently receiving low-dose amitriptyline and lorazepam with some improvement however she remains extremely anxious. CT of the abdomen is unremarkable. Upper abdominal ultrasound is normal except for 3 tiny gallbladder polyps. Gastric emptying study could not be done because of retching.. Review of Systems - Constitutional fatigue, headache(s), malaise, weight loss - EENT Nose, mouth and throat: dizziness, neck pain, no dental pain, no dysphagia, no hoarseness, no vertigo - Breasts no mass, no pain, no skin changes, no swelling - Cardiovascular dyspnea on exertion, lightheadedness, palpatations, rapid heart rate, no chest pain, no chest pain with activity - Respiratory no cough, no dyspnea on exertion, no wheezing, no pain with cough - Gastrointestinal abdominal pain, bloating, dyspepsia, heartburn, nausea, vomiting - Genitourinary Genitourinary: no dysuria, no nocturia, no urinary frequency, no urinary hesitancy, no urinary incontinence, no urinary urgency - Musculoskeletal abnormal gait, arthralgias, back pain, joint swelling, radiating pain into limb , stiffness - Integumentary no changing lesions, no non-healing lesions, no pruritus, no rash - Neurological abnormal gait, abnormal movements, dizziness, headache(s) - Psychiatric anxiety, depression, irritability, mood swings, panic attacks, visual hallucinations - Endocrine fatigue, heat intolerance, palpitations - Hematologic/Lymphatic no easy bleeding, no easy bruising, no lymphadenopathy - Allergic/Immunologic no tongue swelling, no throat swelling, no uticaria, no wheezing, no lip swelling Past History Past medical history: Hypertension Anxiety with depression (bipolar disorder) Pjyaost-Oyhcf-Hvzsw deformity Past surgical history: Hysterectomy Extensive operative repair of both feet and ankles Left knee surgery Past family history: Diabetes mellitus Coronary artery disease Past social history: Present everyday smoker Present daily marijuana use former polysubstance drug use Denies alcohol use Medications and Allergies Home Medications Medication Instructions Recorded Confirmed Type propranolol 80 mg tablet 40 mg PO BID #60 tab 02/13/18 07/26/18 Rx Lisinopril [Zestril] 20 mg PO DAILY 30 Days #30 tab 06/29/18 07/26/18 Rx hydrALAZINE [Apresoline] 10 mg PO TID 30 Days #90 tab 06/29/18 07/26/18 Rx hydrOXYzine HCL [Hydroxyzine HCl] 50 mg PO BID 30 Days #60 tab 06/29/18 Rx Famotidine [Pepcid AC] 20 mg PO DAILY #30 tab 07/27/18 Rx LORazepam [Ativan] 1 mg PO Q8HP PRN #30 tab 07/27/18 Rx Ondansetron HCl [Zofran ODT] 4 mg SL Q4HP PRN #40 tab 07/27/18 Rx traMADol [Ultram] 50 mg PO Q6HP PRN #40 tab 07/27/18 Rx Allergies Allergy/AdvReac Type Severity Reaction Status Date / Time baclofen Allergy Intermediate Confusion Verified 07/26/18 19:52 codeine Allergy Intermediate Vomiting Verified 07/26/18 19:52 diphenhydramine Allergy Intermediate Itching Verified 07/26/18 19:52 [From Benadryl] morphine Allergy Intermediate Headache Verified 07/26/18 19:52 Sulfa (Sulfonamide Allergy Intermediate Itching Verified 07/26/18 19:52 Antibiotics) tramadol [From Ultram] Allergy Intermediate Confusion Verified 07/26/18 19:52 adhesive tape AdvReac Intermediate Hives Verified 07/26/18 19:52 Exam Temp Pulse Resp BP Pulse Ox 98.8 F 75 16 105/59 91 07/27/18 07:00 07/27/18 03:00 07/27/18 07:00 07/27/18 07:00 07/27/18 07:00 - General physical appearance well developed, well nourished, no distress, moderate pain, other (pppatient with extreme anxiety state) - Eyes PERRL, normal ocular movement - ENT normal pinna, normal nares, normal mucosa, no hearing loss, no congestion - Head Head exam IM: Present: atraumatic, normal inspection, normocephalic - Neck no masses, no bruits, trachea midline, no lymphadenopathy, no venous distension - Cardiovascular Cardiovascular exam IM: Present: normal rate and rhythm, RRR, +S1, +S2. Absent : irregular rhythm, JVD, systolic murmur, tachycardia - Respiratory normal expansion, normal respiratory effort, clear to auscultation - Abdomen Abdomen: Present: soft, tender ( mild epigastric and right subcostal tenderness without mass or guarding), bowel sounds Hernia: Present: none - Genitourinary Present: normal external genitalia - Integumentary Present: no rash, no growths, no abnormal pigmentation - Neurologic Present: normal coordination, normal sensation - Musculoskeletal Present: normal gait, normal posture - Psychiatric Present: oriented to time, oriented to person, oriented to place, speech is normal, memory intact, other ( severe anxiety bordering on nicola) Results - Labs 07/27/18 05:17 07/27/18 05:17 Abnormal lab results 07/26/18 07/26/18 07/27/18 Range/Units 19:16 20:00 05:17 WBC 12.8 H (4.5-11.0) K/mcL RBC 3.70 L (4.00-5.20) M/mcL Hct 35.1 L (36.0-48.0) % Gran # 9.7 H (1.8-8.0) K/mcL [place] # (Auto) 1.0 H (0.1-0.9) K/mcL Potassium 3.2 L (3.3-5.1) mmol/L Carbon Dioxide 16 L (22-30) mmol/L Anion Gap 20.0 H (8-16) Glucose 132 H (70-105) mg/dL Phosphorus 2.5 L (2.7-4.5) mg/dL U Marijuana (THC) Screen Suspect positive A (NONDETECTED) 07/27/18 Range/Units 05:17 WBC (4.5-11.0) K/mcL RBC (4.00-5.20) M/mcL Hct (36.0-48.0) % Gran # (1.8-8.0) K/mcL [place] # (Auto) (0.1-0.9) K/mcL Potassium (3.3-5.1) mmol/L Carbon Dioxide 21 L (22-30) mmol/L Anion Gap (8-16) Glucose 128 H (70-105) mg/dL Phosphorus (2.7-4.5) mg/dL U Marijuana (THC) Screen (NONDETECTED) Diabetes panel 07/26/18 07/27/18 Range/Units 20:00 05:17 Sodium 134 137 (133-145) mmol/L Potassium 3.2 L 3.7 (3.3-5.1) mmol/L Chloride 98 101 (96-108) mmol/L Carbon Dioxide 16 L 21 L (22-30) mmol/L BUN 8 8 (8-23) mg/dl Creatinine 0.9 1.0 (0.6-1.1) mg/dl Glucose 132 H 128 H (70-105) mg/dL Calcium 9.1 8.7 (8.6-10.4) mg/dl AST 14 12 (0-37) U/l ALT 8 7 (0-40) U/l Alkaline Phosphatase 75 74 (39-117) U/L Total Protein 6.7 6.3 (5.9-8.4) gm/dL Albumin 3.9 3.9 (3.2-5.2) gm/dL Triglycerides 72 75 (<150) mg/dl Calcium panel 07/26/18 07/27/18 Range/Units 20:00 05:17 Calcium 9.1 8.7 (8.6-10.4) mg/dl Phosphorus 2.5 L 4.2 (2.7-4.5) mg/dL Albumin 3.9 3.9 (3.2-5.2) gm/dL Pituitary panel 07/26/18 07/27/18 Range/Units 20:00 05:17 Sodium 134 137 (133-145) mmol/L Potassium 3.2 L 3.7 (3.3-5.1) mmol/L Chloride 98 101 (96-108) mmol/L Carbon Dioxide 16 L 21 L (22-30) mmol/L BUN 8 8 (8-23) mg/dl Creatinine 0.9 1.0 (0.6-1.1) mg/dl Glucose 132 H 128 H (70-105) mg/dL Calcium 9.1 8.7 (8.6-10.4) mg/dl Adrenal panel 07/26/18 07/27/18 Range/Units 20:00 05:17 Sodium 134 137 (133-145) mmol/L Potassium 3.2 L 3.7 (3.3-5.1) mmol/L Chloride 98 101 (96-108) mmol/L Carbon Dioxide 16 L 21 L (22-30) mmol/L BUN 8 8 (8-23) mg/dl Creatinine 0.9 1.0 (0.6-1.1) mg/dl Glucose 132 H 128 H (70-105) mg/dL Calcium 9.1 8.7 (8.6-10.4) mg/dl Total Bilirubin 0.5 0.4 (0.0-1.0) mg/dL AST 14 12 (0-37) U/l ALT 8 7 (0-40) U/l Alkaline Phosphatase 75 74 (39-117) U/L Total Protein 6.7 6.3 (5.9-8.4) gm/dL Albumin 3.9 3.9 (3.2-5.2) gm/dL All other labs normal. Assessment and Plan (1) Bipolar disorder (manic depression) Patient should be treated with appropriate high-dose cyclic antidepressant. She should also be started on moderate dose of benzodiazepine I will follow the patient up tomorrow to monitor her response I will gladly follow her up in 2 weeks in the office to assure that her medication is effective. Status: Acute (2) Cyclical vomiting, psychogenic This should improve once her severe anxiety state is improved. If she does not improve I will schedule for upper endoscopy Status: Acute (3) Essential (primary) hypertension Status: Acute
[2018-07-27] MEDS: AMITRIPTYLINE 25 MG TABLET PO SCH ×2 (20:36→20:45)
[2018-07-27] MEDS ORDERED: AMITRIPTYLINE 25 MG TABLET PO SCH (21:00)
[2018-07-27] MEDS: ACETAMINOPHEN 325 MG TABLET PO PRN (22:54)
--- NOTE | 2018-07-28 06:00 | Internal Med Progress Note ---
Medical - PN: Subj Patient information: Note initiated : 07/28/18 at 5:55 am Service Date, if different from initiated Date: [] Patient: Nida Ramirez a 63 y/o F admitted on 07/26/18 for anxiety. Chief Complaint: [] Interval history: Ms. Ramirez is a 63 year old F With history of chronic pain anxiety who comes in with nausea vomiting intractable progressing since Sunday. She said she woke up this morning she typically does very nauseous could not get it under control. She said it started Sunday. With no inciting causes that she is aware of. She says she has had nausea vomiting more or less chronically since being taken off Dilaudid and diazepam and Flexeril in December when she ran out of her medications because she stopped going to her primary care provider and is trying to find a new one. In the ER they are unable to get her nausea vomiting under control with multiple medications she is found to have a little bit of lactate elevation likely from all the nausea vomiting fluid deprivation. A CT abdomen pelvis is done which is no acute pathology. She does report early satiety may be some bloating. She denies any vertigo no diarrhea she has diffuse achy abdominal pain she reports mostly from muscle pain from vomiting. She has been able to keep anything down for several days. She Uses marijuana daily. She has not been on any anxiety medications at home or pain medications at home for some time. She seems to have some temporary improvement while I was visiting her in the ED at this point. 07/27 Last episode of nausea vomiting was middle the night. Did get some sleep last night. Feeling better does have some nausea. Does have chronic cough. And complains of a mild headache. Denies getting any narcotics or benzodiazepines on the street. 07/28 Refused amitriptyline last night. Did not take this morning. Describes some nausea throughout night. Nurse reports no real emesis just spit up. Review of Systems: denies fever/chills/chest or abdominal pain/cough/dyspnea/diarrhea. Otherwise see above. - Constitutional Vitals: Vital Signs Temp Pulse Resp BP Pulse Ox 98.2 F 74 20 133/71 98 07/28/18 03:00 07/28/18 03:00 07/28/18 03:00 07/28/18 03:00 07/28/18 03:00 Period Temp Pulse Resp BP Sys/Mckinnon Pulse Ox Last 24 Hr 98.2 F-98.9 F 70-74 16-20 105-168/59-77 91-98 Intake and Output 07/27/18 07/27/18 07/28/18 13:59 21:59 05:59 Intake Total 180 / 180 Output Total 650 / 650 650 / 650 Balance -650 / -650 -470 / -470 Weight 60.328 kg 58.967 kg Patient Weight 07/28/18 05:59 Weight 58.967 kg Intake & Output: Intake & Output 07/27/18 07/27/18 07/28/18 13:59 21:59 05:59 Intake Total 180 / 180 Output Total 650 / 650 650 / 650 Balance -650 / -650 -470 / -470 Weight 60.328 kg 58.967 kg Intake: Oral 180 / 180 Output: Void Amount 600 / 600 650 / 650 Emesis 50 / 50 Other: Urine Color Bright Yellow Urine Odor Normal # Voids 1 # Emeses 1 Exam: General: Alert, Awake, No acute Distress Eyes/N/T: EOMI, Head/Neck: neck supple, CV: RRR, No murmurs, normal s1/s2 Pulm: Clear b/l, no wheezing/rhonchi/rales Abd: soft, +BS x4 Ext: no clubbing/cyanosis/edema Neuro: Alert, no focal deficits, moves all extremities Skin: warm/dry Medical - PN: Obj Da - Labs CBC & Chem 7: 07/28/18 05:12 07/28/18 05:12 Labs: Abnormal Lab Results 07/27/18 07/27/18 07/26/18 05:17 05:17 20:00 WBC 12.8 H RBC 3.70 L Hct 35.1 L Gran # 9.7 H [place] # (Auto) 1.0 H VBG Lactic Acid Potassium 3.2 L Carbon Dioxide 21 L 16 L Anion Gap 20.0 H Glucose 128 H 132 H Phosphorus 2.5 L Urine Ketones U Marijuana (THC) Screen 07/26/18 07/26/18 07/26/18 19:16 09:49 07:52 WBC RBC Hct Gran # [place] # (Auto) VBG Lactic Acid 2.4 H Potassium Carbon Dioxide Anion Gap Glucose Phosphorus Urine Ketones 20 A U Marijuana (THC) Screen Suspect positive A 07/26/18 07/26/18 07:52 07:52 WBC 12.6 H RBC Hct Gran # 9.8 H [place] # (Auto) VBG Lactic Acid Potassium Carbon Dioxide 20 L Anion Gap 18.0 H Glucose 133 H Phosphorus Urine Ketones U Marijuana (THC) Screen Meds: Medications Acetaminophen (Tylenol) 650 mg PO Q6HP PRN PRN Reason: PAIN/FEVER > 101 Last Admin: 07/27/18 22:54 Dose: 650 mg Albuterol/Ipratropium (Duoneb) 3 ml NEB Q4HRT PRN PRN Reason: wheezing Amitriptyline HCl (Elavil) 75 mg PO HS [facility] Last Admin: 07/27/18 20:45 Dose: Not Given Clonidine HCl (Catapres) 0.1 mg PO Q6HP PRN PRN Reason: Hypertension Docusate Sodium (Colace) 100 mg PO BID [facility] Last Admin: 07/27/18 20:36 Dose: 100 mg Enoxaparin Sodium (Lovenox) 40 mg SQ DAILY [facility] Last Admin: 07/27/18 08:54 Dose: 40 mg Famotidine (Pepcid) 20 mg IV Q12 [facility] Last Admin: 07/27/18 20:36 Dose: 20 mg Hydralazine HCl (Apresoline) 10 mg IV Q4-6HP PRN PRN Reason: Hypertension Last Admin: 07/26/18 20:39 Dose: 10 mg Hydroxyzine HCl (Atarax) 50 mg PO BIDP PRN PRN Reason: Anxiety Last Admin: 07/26/18 20:38 Dose: 50 mg Potassium Chloride/Dextrose/Sod Cl (Dextrose 5%-Ns W/20meq Kcl) 1,000 mls @ 75 mls/hr IV .[id number] [facility] Last Admin: 07/27/18 22:18 Dose: 75 mls/hr Lisinopril (Zestril) 20 mg PO DAILY [facility] Lorazepam (Ativan) 0.5 mg IV Q4HP PRN PRN Reason: ANXIETY/SEDATION Last Admin: 07/27/18 20:35 Dose: 0.5 mg Lorazepam (Ativan) 1 mg PO BIDP PRN PRN Reason: ANXIETY/SEDATION Last Admin: 07/28/18 04:10 Dose: 1 mg Metoclopramide HCl (Reglan) 5 mg IV ACHS [facility] Last Admin: 07/27/18 20:35 Dose: 5 mg Nicotine (Nicoderm) 21 mg TOPICAL DAILY@1000 [facility] Last Admin: 07/27/18 09:06 Dose: 21 mg Ondansetron HCl (Zofran) 4 mg IV Q4HP PRN PRN Reason: Nausea And Vomiting Last Admin: 07/27/18 06:03 Dose: 4 mg Oxycodone/Acetaminophen (Percocet 5-325 Mg) 1 tab PO Q4HP PRN PRN Reason: PAIN LEVEL 3-6 Prochlorperazine Edisylate (Compazine) 5 mg IV Q6HP PRN PRN Reason: Nausea And Vomiting Prochlorperazine Maleate (Compazine) 12.5 mg MI Q12HP PRN PRN Reason: Nausea And Vomiting Promethazine HCl (Phenergan) 12.5 mg PO Q6HP PRN PRN Reason: Nausea And Vomiting Propranolol HCl (Inderal) 40 mg PO BID [facility] Last Admin: 07/27/18 20:36 Dose: 40 mg Scopolamine (Transderm-Scop) 1 patch TOPICAL Q72H [facility] Last Admin: 07/26/18 19:25 Dose: Not Given Sodium Chloride (Saline Flush) 10 ml IV Q8 [facility] Last Admin: 07/27/18 20:37 Dose: 10 ml Medical - PN: A/P - Time Spent With Patient Total time spent is greater than 50% in coordination of care (as documented) at patient's floor/unit and/or counseling patient: - Narrative A/P Narrative: A: *Intractable nausea vomiting: Differential includes cyclic vomiting including cannabis hyperemesis vs psychogenic vs gastroparesis -CT abd/pelv no acute pathology or evidence of GOO. -emesis was bilious in nature on admit *Severe anxiety: Has been off anxiety medications for some time, unknown if she is obtaining elsewhere. was on diazepam -multiple ED visits for Anxiety *Hypertension: has been getting BP med refills through the ED, propranolol/ lisinopril/hydralazine *Chronic pain: Has been off pain medications for some time, unknown if she is obtaining them elsewhere. was also on dilaudid *Tobacco abuse: Now quitting * P: -IV fluid hydration, sips/chips -Antiemetics, amitriptyline (refusing but now willing to take) and scopolamine patch included -PRN pain medications including Toradol -Gastric emptying study unable to be performed by pt -Dr. Stanley consulted for evaluation to determine need for endoscopy -PRN Ativan -trial reglan -smoking cessation counseling, nicotine patch -cont lisinopril/propranolol, d/c hydralazine -ppx: Lovenox Medical - PN: Qual - Stroke Symptom Onset Unknown: No - VTE Deep Vein Thrombosis/Pulmonary Embolism Present on Admission: No
[2018-07-28 06:28] LABS: Basophils # (Auto) 0.1 K/mcL (0.0-0.3); Basophils % (Auto) 0.5 % (0.0-2.0); Eosinophils # (Auto) 0 K/mcL (0.0-0.7); Eosinophils % (Auto) 0.2 % (0.0-7.0); Granulocytes % (Auto) 59.8 % (38.0-78.0); Lymphocytes # (Auto) 4.3 K/mcL (1.5-4.8); Lymphocytes % (Auto) 28.3 % (15.5-49.0); Mean Corpuscular HGB Conc 34.1 g/dL (31.0-36.0); Monocytes # (Auto) 1.7 K/mcL (0.1-0.9); Monocytes % (Auto) 11.2 % (1.0-12.0); Platelet Count 314 K/mcL (140-440); RBC 3.74 M/mcL (4.00-5.20); Red Cell Distribution Width 13.6 % (11.5-14.5)
[2018-07-28] MEDS: 0.9 % SODIUM CHLORIDE 10 ML SYRINGE IV SCH ×3 (06:42→20:56)
[2018-07-28 06:53] LABS: Blood Urea Nitrogen 5 mg/dl (8-23)
[2018-07-28] MEDS: FAMOTIDINE/PF 20 MG/2 ML VIAL IV SCH ×2 (07:26→20:49)
[2018-07-28] MEDS: DOCUSATE SODIUM 100 MG CAPSULE PO SCH ×2 (07:27→20:53)
[2018-07-28] MEDS: LISINOPRIL 20 MG TABLET PO SCH (07:27)
[2018-07-28] MEDS: ENOXAPARIN 40 MG/0.4 ML SYRINGE SQ SCH (07:27)
[2018-07-28] MEDS: METOCLOPRAMIDE 10 MG/2 ML VIAL IV SCH ×2 (07:27→11:47)
[2018-07-28] MEDS: PROPRANOLOL 40 MG TABLET PO SCH ×2 (07:28→20:53)
[2018-07-28] MEDS: ACETAMINOPHEN 325 MG TABLET PO PRN (07:39)
[2018-07-28] MEDS ORDERED: AMITRIPTYLINE 25 MG TABLET PO ONE (08:07)
[2018-07-28] MEDS ORDERED: LISINOPRIL 10 MG TABLET PO SCH (09:00)
[2018-07-28] MEDS ORDERED: LORazepam 1 MG TABLET PO SCH (09:00)
[2018-07-28 09:33] LABS: Band Neutrophils % 1 % (0-10); Lymphocytes % 16 % (15-49); Monocytes % (Manual) 7 % (1-12); Platelet Estimate NORMAL (NORMAL); RBC Morphology NORMAL (NORMAL); Segmented Neutrophils % 70 % (38-78)
[2018-07-28] MEDS: NICOTINE 21 MG PATCH TOPICAL SCH (10:16)
[2018-07-28] MEDS: DEXTROSE 5%-NS W/20MEQ KCL 1,000 ML IV SCH (11:44)
--- NOTE | 2018-07-28 12:02 | General Surgery Progress Note ---
Subjective Patient reports: feels better, still having pain, pain is less, tolerating liquids well, flatus, bowel movement, nausea, afebrile Narrative: Note initiated : 07/28/18 at 12:00 pm Service Date, if different from initiated Date: [] Patient: Nida Ramirez 63 y/o F admitted on 07/26/18 for anxiety. Chief Complaint: [patient is better than yesterday. She has been started on amitriptyline which she did not take last evening but she did take it today.. She is not as anxious as she was on yesterday. I discussed with her the need for her to try the medication so that we can advance her diet. I've taken the liberty of adding Seroquel to her regimen.. Her diet is advanced to full liquids.] Objective Temp Pulse Resp BP Pulse Ox 98.5 F 74 16 133/77 96 07/28/18 11:00 07/28/18 03:00 07/28/18 11:00 07/28/18 11:00 07/28/18 11:00 - Additional Data Intake & Output - Last 24 hours: Intake & Output 07/26/18 07/27/18 07/28/18 07/29/18 05:59 05:59 05:59 05:59 Intake Total 1304.5455 / 1304.5455 180 / 180 1000 / 1000 Output Total 850 / 850 1300 / 1300 300 / 300 Balance 454.5455 / 454.5455 -1120 / -1120 700 / 700 Weight 133 lb 130 lb - General physical appearance well developed, well nourished, moderate distress, moderate pain - Eyes PERRL, normal ocular movement - ENT normal pinna, normal nares, normal mucosa, no hearing loss, no congestion - Neck no masses, no bruits, trachea midline, no lymphadenopathy, no venous distension - Respiratory normal expansion, normal respiratory effort, clear to auscultation - Cardiovascular Cardiovascular exam: Present: normal rate and rhythm, RRR, +S1, +S2. Absent: JVD, tachycardia - Abdomen tender (minimal tenderness in midepigastrium), bowel sounds (present), surgical scars (none), masses (none) - Integumentary no rash, no growths, no abnormal pigmentation - Neurologic normal coordination, normal sensation - Psychiatric oriented to time, oriented to person, oriented to place, speech is normal, memory intact - Labs 07/28/18 05:12 07/28/18 05:12 Diabetes panel 07/28/18 Range/Units 05:12 Sodium 133 (133-145) mmol/L Potassium 3.5 (3.3-5.1) mmol/L Chloride 99 (96-108) mmol/L Carbon Dioxide 18 L (22-30) mmol/L BUN 5 L (8-23) mg/dl Creatinine 0.8 (0.6-1.1) mg/dl Glucose 109 H (70-105) mg/dL Calcium 8.8 (8.6-10.4) mg/dl Calcium panel 07/28/18 Range/Units 05:12 Calcium 8.8 (8.6-10.4) mg/dl Pituitary panel 07/28/18 Range/Units 05:12 Sodium 133 (133-145) mmol/L Potassium 3.5 (3.3-5.1) mmol/L Chloride 99 (96-108) mmol/L Carbon Dioxide 18 L (22-30) mmol/L BUN 5 L (8-23) mg/dl Creatinine 0.8 (0.6-1.1) mg/dl Glucose 109 H (70-105) mg/dL Calcium 8.8 (8.6-10.4) mg/dl Adrenal panel 07/28/18 Range/Units 05:12 Sodium 133 (133-145) mmol/L Potassium 3.5 (3.3-5.1) mmol/L Chloride 99 (96-108) mmol/L Carbon Dioxide 18 L (22-30) mmol/L BUN 5 L (8-23) mg/dl Creatinine 0.8 (0.6-1.1) mg/dl Glucose 109 H (70-105) mg/dL Calcium 8.8 (8.6-10.4) mg/dl Assessment and Plan (1) Bipolar disorder (manic depression) Status: Acute Current Visit: Yes (2) Cyclical vomiting, psychogenic Status: Acute Current Visit: Yes (3) Essential (primary) hypertension Status: Acute Current Visit: No - Time Spent With Patient Total time spent is greater than 50% in coordination of care (as documented) at patient's floor/unit and/or counseling patient:
[2018-07-28] MEDS: oxyCODONE/APAP 5/325MG TABLET PO PRN ×3 (13:11→20:54)
[2018-07-28] MEDS: hydrALAZINE 20 MG/ML VIAL IV PRN (17:05)
[2018-07-28] MEDS: AMITRIPTYLINE 25 MG TABLET PO SCH (20:53)
[2018-07-28] MEDS: QUEtiapine 100 MG TABLET PO SCH (20:53)
[2018-07-28] MEDS: LORazepam 1 MG TABLET PO PRN (23:39)
[2018-07-29] MEDS: DEXTROSE 5%-NS W/20MEQ KCL 1,000 ML IV SCH (00:49)
[2018-07-29] MEDS: hydrOXYzine 25 MG TABLET PO PRN ×2 (01:34→20:24)
[2018-07-29] MEDS: 0.9 % SODIUM CHLORIDE 10 ML SYRINGE IV SCH ×3 (04:22→20:25)
[2018-07-29] MEDS: LISINOPRIL 20 MG TABLET PO SCH (09:12)
[2018-07-29] MEDS: DOCUSATE SODIUM 100 MG CAPSULE PO SCH ×2 (09:13→20:23)
[2018-07-29] MEDS: QUEtiapine 100 MG TABLET PO SCH ×2 (09:13→20:23)
[2018-07-29] MEDS: LORazepam 1 MG TABLET PO PRN ×2 (09:13→19:07)
[2018-07-29] MEDS: FAMOTIDINE 20 MG TABLET PO SCH ×2 (09:13→20:23)
[2018-07-29] MEDS: ENOXAPARIN 40 MG/0.4 ML SYRINGE SQ SCH (09:13)
[2018-07-29] MEDS: PROPRANOLOL 40 MG TABLET PO SCH ×2 (09:13→20:23)
--- NOTE | 2018-07-29 09:18 | Internal Med Progress Note ---
Medical - PN: Subj Patient information: Note initiated : 07/29/18 at 9:16 am Service Date, if different from initiated Date: [] Patient: Nida Ramirez a 63 y/o F admitted on 07/26/18 for anxiety. Chief Complaint: [] Interval history: Ms. Ramirez is a 63 year old F With history of chronic pain anxiety who comes in with nausea vomiting intractable progressing since Sunday. She said she woke up this morning she typically does very nauseous could not get it under control. She said it started Sunday. With no inciting causes that she is aware of. She says she has had nausea vomiting more or less chronically since being taken off Dilaudid and diazepam and Flexeril in December when she ran out of her medications because she stopped going to her primary care provider and is trying to find a new one. In the ER they are unable to get her nausea vomiting under control with multiple medications she is found to have a little bit of lactate elevation likely from all the nausea vomiting fluid deprivation. A CT abdomen pelvis is done which is no acute pathology. She does report early satiety may be some bloating. She denies any vertigo no diarrhea she has diffuse achy abdominal pain she reports mostly from muscle pain from vomiting. She has been able to keep anything down for several days. She Uses marijuana daily. She has not been on any anxiety medications at home or pain medications at home for some time. She seems to have some temporary improvement while I was visiting her in the ED at this point. 07/27 Last episode of nausea vomiting was middle the night. Did get some sleep last night. Feeling better does have some nausea. Does have chronic cough. And complains of a mild headache. Denies getting any narcotics or benzodiazepines on the street. 07/28 Refused amitriptyline last night. Did not take this morning. Describes some nausea throughout night. Nurse reports no real emesis just spit up. 07/29 Patient became confused last night and had visual hallucinations. With agitations. But finally fell asleep. Woke up feeling much improved. She states she felt better than she has in a long time. First good night sleep in a long time. No nausea/vomiting this morning. No headaches. Review of Systems: denies fever/chills/chest or abdominal pain/cough/dyspnea/diarrhea. Otherwise see above. - Constitutional Vitals: Vital Signs Temp Pulse Resp BP Pulse Ox 97.4 F 70 16 101/61 97 07/29/18 00:32 07/29/18 00:32 07/29/18 00:32 07/29/18 00:32 07/29/18 00:32 Period Temp Pulse Resp BP Sys/Mckinnon Pulse Ox Last 24 Hr 97.4 F-98.9 F 70-79 16-18 101-151/61-77 96-97 Intake and Output 07/28/18 07/29/18 07/29/18 21:59 05:59 13:59 Intake Total 1220 / 1220 1340 / 1340 Output Total 2049 300 / 300 Balance -830 / -830 1040 / 1040 Weight 60.555 kg Intake & Output: Intake & Output 07/28/18 07/29/18 07/29/18 21:59 05:59 13:59 Intake Total 1220 / 1220 1340 / 1340 Output Total 2049 300 / 300 Balance -830 / -830 1040 / 1040 Weight 60.555 kg Intake: IV 980 / 980 Dextrose 5%-Ns W/20Meq KCl 1, 980 / 980 000 ml @ 75 mls/hr IV .[id number] Rx#:[id number] Oral 1220 / 1220 360 / 360 Output: Void Amount 2049 300 / 300 Other: Meal Gatorade 360cc Percent of Meal Consumed 100% Feeding Ability Independent Urine Appearance Clear Urine Color Bright Yellow Pale # Voids 3 Exam: General: Alert, Awake, No acute Distress Eyes/N/T: EOMI, Head/Neck: neck supple, CV: RRR, No murmurs, normal s1/s2 Pulm: Clear b/l, no wheezing/rhonchi/rales Abd: soft, +BS x4 Ext: no clubbing/cyanosis/edema Neuro: Alert, no focal deficits, moves all extremities Skin: warm/dry Medical - PN: Obj Da - Labs CBC & Chem 7: 07/28/18 05:12 07/28/18 05:12 Labs: Abnormal Lab Results 07/28/18 07/28/18 07/28/18 08:20 05:12 05:12 WBC 15.1 H RBC 3.74 L Hct 35.2 L Gran # 9.0 H Crook # (Auto) 1.7 H Reactive Lymphocytes 6 H VBG Lactic Acid Potassium Carbon Dioxide 18 L Anion Gap BUN 5 L Glucose 109 H Phosphorus Urine Ketones U Marijuana (THC) Screen 07/27/18 07/27/18 07/26/18 05:17 05:17 20:00 WBC 12.8 H RBC 3.70 L Hct 35.1 L Gran # 9.7 H Crook # (Auto) 1.0 H Reactive Lymphocytes VBG Lactic Acid Potassium 3.2 L Carbon Dioxide 21 L 16 L Anion Gap 20.0 H BUN Glucose 128 H 132 H Phosphorus 2.5 L Urine Ketones U Marijuana (THC) Screen 07/26/18 07/26/18 07/26/18 19:16 09:49 07:52 WBC RBC Hct Gran # Crook # (Auto) Reactive Lymphocytes VBG Lactic Acid 2.4 H Potassium Carbon Dioxide Anion Gap BUN Glucose Phosphorus Urine Ketones 20 A U Marijuana (THC) Screen Suspect positive A Meds: Medications Acetaminophen (Tylenol) 650 mg PO Q6HP PRN PRN Reason: PAIN/FEVER > 101 Last Admin: 07/28/18 07:39 Dose: 650 mg Albuterol/Ipratropium (Duoneb) 3 ml NEB Q4HRT PRN PRN Reason: wheezing Amitriptyline HCl (Elavil) 75 mg PO [facility] Last Admin: 07/28/18 20:53 Dose: 75 mg Clonidine HCl (Catapres) 0.1 mg PO Q6HP PRN PRN Reason: Hypertension Docusate Sodium (Colace) 100 mg PO BID [facility] Last Admin: 07/29/18 09:13 Dose: 100 mg Enoxaparin Sodium (Lovenox) 40 mg SQ DAILY [facility] Last Admin: 07/29/18 09:13 Dose: 40 mg Famotidine (Pepcid) 20 mg PO BID [facility] Last Admin: 07/29/18 09:13 Dose: 20 mg Hydroxyzine HCl (Atarax) 50 mg PO BIDP PRN PRN Reason: Anxiety Last Admin: 07/29/18 01:34 Dose: 50 mg Lisinopril (Zestril) 20 mg PO DAILY [facility] Last Admin: 07/29/18 09:12 Dose: 20 mg Lorazepam (Ativan) 1 mg PO Q6HP PRN PRN Reason: ANXIETY/SEDATION Last Admin: 07/29/18 09:13 Dose: 1 mg Nicotine (Nicoderm) 21 mg TOPICAL DAILY@1000 [facility] Last Admin: 07/28/18 10:16 Dose: 21 mg Ondansetron HCl (Zofran) 4 mg IV Q4HP PRN PRN Reason: Nausea And Vomiting Last Admin: 07/27/18 06:03 Dose: 4 mg Oxycodone/Acetaminophen (Percocet 5-325 Mg) 1 tab PO Q4HP PRN PRN Reason: PAIN LEVEL 3-6 Last Admin: 07/28/18 20:54 Dose: 1 tab Prochlorperazine Edisylate (Compazine) 5 mg IV Q6HP PRN PRN Reason: Nausea And Vomiting Prochlorperazine Maleate (Compazine) 12.5 mg [place] Q12HP PRN PRN Reason: Nausea And Vomiting Promethazine HCl (Phenergan) 12.5 mg PO Q6HP PRN PRN Reason: Nausea And Vomiting Propranolol HCl (Inderal) 40 mg PO BID [facility] Last Admin: 07/29/18 09:13 Dose: 40 mg Quetiapine Fumarate (Seroquel) 100 mg PO BID [facility] Last Admin: 07/29/18 09:13 Dose: 100 mg Scopolamine (Transderm-Scop) 1 patch TOPICAL Q72H [facility] Last Admin: 07/26/18 19:25 Dose: Not Given Sodium Chloride (Saline Flush) 10 ml IV Q8 [facility] Last Admin: 07/29/18 04:22 Dose: Not Given Medical - PN: A/P - Time Spent With Patient Total time spent is greater than 50% in coordination of care (as documented) at patient's floor/unit and/or counseling patient: - Narrative A/P Narrative: A: *Intractable nausea/omiting: Differential includes cyclic vomiting including cannabis hyperemesis vs psychogenic vs less likely gastroparesis -CT abd/pelv no acute pathology or evidence of GOO. -emesis was bilious in nature on admit -Improved today *Severe anxiety, also has Depression: Has been off anxiety medications for 6mods. was on diazepam -multiple ED visits for Anxiety -improved today *Hypertension: has been getting BP med refills through the ED, propranolol/ lisinopril/hydralazine *Chronic pain: Has been off pain medications for 6mos. was on dilaudid *Tobacco abuse: Now quitting * P: -Antiemetics, amitriptyline and scopolamine patch included -PRN pain medications including Toradol -Gastric emptying study unable to be performed by pt -Dr. Stanley following -PRN Ativan -smoking cessation counseling, nicotine patch -cont lisinopril/propranolol, d/c hydralazine -will need to f/u with Psych -ppx: Lovenox Medical - PN: Qual - Stroke Symptom Onset Unknown: No - VTE Deep Vein Thrombosis/Pulmonary Embolism Present on Admission: No
[2018-07-29] MEDS: NICOTINE 21 MG PATCH TOPICAL SCH (09:36)
[2018-07-29] MEDS: ACETAMINOPHEN 325 MG TABLET PO PRN (10:12)
--- NOTE | 2018-07-29 15:44 | General Surgery Progress Note ---
Subjective Patient reports: feels better, tolerating liquids well, flatus, no bowel movement, afebrile Narrative: Note initiated : 07/29/18 at 3:41 pm Service Date, if different from initiated Date: [] Patient: Nida Ramirez 63 y/o F admitted on 07/26/18 for anxiety. Chief Complaint: [patient has been well today. She has some hallucinations last evening which were primarily visual. She has not had nausea all day and has tolerated diet without vomiting. She is much calmer now and feels that her medication is effective though she does not want to take the amitriptyline.. The Seroquel along with the lorazepam should be effective. Patient's diet will be advanced in the morning.] Objective Temp Pulse Resp BP Pulse Ox 98.3 F 79 18 156/88 94 07/29/18 12:08 07/29/18 09:00 07/29/18 12:08 07/29/18 12:08 07/29/18 12:08 - Additional Data Intake & Output - Last 24 hours: Intake & Output 07/27/18 07/28/18 07/29/18 07/30/18 05:59 05:59 05:59 05:59 Intake Total 1304.5455 / 1304.5455 180 / 180 4160 / 4160 200 / 200 Output Total 850 / 850 1300 / 1300 3450 / 3450 Balance 454.5455 / 454.5455 -1120 / -1120 710 / 710 200 / 200 Weight 133 lb 130 lb 133 lb 8 oz - General physical appearance no distress, no pain - Eyes PERRL, normal ocular movement - ENT normal pinna, normal nares, normal mucosa, no hearing loss, no congestion - Neck no masses, no bruits, trachea midline, no lymphadenopathy, no venous distension - Respiratory normal expansion, normal respiratory effort, clear to auscultation - Cardiovascular Cardiovascular exam: Present: normal rate and rhythm, RRR, +S1, +S2. Absent: JVD, tachycardia - Abdomen soft, non tender (abdominal exam is benign;;;;;;;;;;;;;;;;;;;;;;;;;;;;;;;;;;;;;; ;; she does not have tenderness; she has good active bowel sounds.) - Integumentary no rash, no growths, no abnormal pigmentation - Neurologic normal coordination, normal sensation - Musculoskeletal normal gait, normal posture - Psychiatric oriented to time, oriented to person, oriented to place, speech is normal, memory intact - Labs 07/28/18 05:12 07/28/18 05:12 Assessment and Plan (1) Bipolar disorder (manic depression) Status: Acute Assessment and plan: Continue Seroquel at present dose Continue lorazepam at present dose Advance to regular diet in a.m. Current Visit: Yes (2) Cyclical vomiting, psychogenic Status: Acute Assessment and plan: Symptoms resolving at this time Current Visit: Yes (3) Essential (primary) hypertension Status: Acute Current Visit: No - Time Spent With Patient Total time spent is greater than 50% in coordination of care (as documented) at patient's floor/unit and/or counseling patient:
[2018-07-29] MEDS: SCOPOLAMINE 1 PATCH PATCH TOPICAL SCH (19:07)
[2018-07-29] MEDS: oxyCODONE/APAP 5/325MG TABLET PO PRN (21:35)
[2018-07-29] MEDS: AMITRIPTYLINE 25 MG TABLET PO SCH (21:36)
[2018-07-30] MEDS: oxyCODONE/APAP 5/325MG TABLET PO PRN ×4 (01:21→22:50)
[2018-07-30] MEDS: LORazepam 1 MG TABLET PO PRN ×4 (02:52→21:45)
[2018-07-30] MEDS: 0.9 % SODIUM CHLORIDE 10 ML SYRINGE IV SCH ×3 (04:36→21:23)
[2018-07-30 07:08] LABS: Basophils # (Auto) 0.1 K/mcL (0.0-0.3); Basophils % (Auto) 0.6 % (0.0-2.0); Eosinophils # (Auto) 0.3 K/mcL (0.0-0.7); Eosinophils % (Auto) 2.9 % (0.0-7.0); Lymphocytes % (Auto) 27.8 % (15.5-49.0); Mean Cell Volume 94.7 fL (80.0-100.0); Mean Corpuscular HGB Conc 33.7 g/dL (31.0-36.0); Mean Corpuscular Hemoglobin 31.9 pg (26.0-34.0); Monocytes # (Auto) 1.3 K/mcL (0.1-0.9); Monocytes % (Auto) 11.7 % (1.0-12.0); Platelet Count 293 K/mcL (140-440); RBC 3.73 M/mcL (4.00-5.20); Red Cell Distribution Width 14.1 % (11.5-14.5)
[2018-07-30 07:36] LABS: Blood Urea Nitrogen 7 mg/dl (8-23)
--- NOTE | 2018-07-30 07:55 | Internal Med Progress Note ---
Medical - PN: Subj Patient information: Note initiated : 07/30/18 at 7:52 am Service Date, if different from initiated Date: [] Patient: Nida Ramirez a 63 y/o F admitted on 07/26/18 for anxiety. Chief Complaint: [] Interval history: Ms. Ramirez is a 63 year old F With history of chronic pain anxiety who comes in with nausea vomiting intractable progressing since Sunday. She said she woke up this morning she typically does very nauseous could not get it under control. She said it started Sunday. With no inciting causes that she is aware of. She says she has had nausea vomiting more or less chronically since being taken off Dilaudid and diazepam and Flexeril in December when she ran out of her medications because she stopped going to her primary care provider and is trying to find a new one. In the ER they are unable to get her nausea vomiting under control with multiple medications she is found to have a little bit of lactate elevation likely from all the nausea vomiting fluid deprivation. A CT abdomen pelvis is done which is no acute pathology. She does report early satiety may be some bloating. She denies any vertigo no diarrhea she has diffuse achy abdominal pain she reports mostly from muscle pain from vomiting. She has been able to keep anything down for several days. She Uses marijuana daily. She has not been on any anxiety medications at home or pain medications at home for some time. She seems to have some temporary improvement while I was visiting her in the ED at this point. 07/27 Last episode of nausea vomiting was middle the night. Did get some sleep last night. Feeling better does have some nausea. Does have chronic cough. And complains of a mild headache. Denies getting any narcotics or benzodiazepines on the street. 07/28 Refused amitriptyline last night. Did not take this morning. Describes some nausea throughout night. Nurse reports no real emesis just spit up. 07/29 Patient became confused last night and had visual hallucinations. With agitations. But finally fell asleep. Woke up feeling much improved. She states she felt better than she has in a long time. First good night sleep in a long time. No nausea/vomiting this morning. No headaches. 07/30 Became agitated again in the evening, apparently some little bit hallucinations in the middle of night. Patient feels good today. Very minor episode of nausea but quickly went away. Patient feels that she had more of an adverse reaction from amitriptyline than any of the other medications. Review of Systems: denies fever/chills/chest or abdominal pain/cough/dyspnea/diarrhea. Otherwise see above. - Constitutional Vitals: Vital Signs Temp Pulse Resp BP Pulse Ox 97.8 F 81 20 109/61 98 07/30/18 03:08 07/30/18 03:08 07/30/18 03:08 07/30/18 03:08 07/30/18 03:08 Period Temp Pulse Resp BP Sys/Mckinnon Pulse Ox Last 24 Hr 97.8 F-98.7 F 72-81 16-20 96-156/59-88 94-98 Intake and Output 07/29/18 07/30/18 07/30/18 21:59 05:59 13:59 Intake Total 460 / 460 400 / 400 Output Total 600 / 600 Balance -140 / -140 400 / 400 Weight 59.647 kg Intake & Output: Intake & Output 07/29/18 07/30/18 07/30/18 21:59 05:59 13:59 Intake Total 460 / 460 400 / 400 Output Total 600 / 600 Balance -140 / -140 400 / 400 Weight 59.647 kg Intake: Oral 460 / 460 400 / 400 Output: Void Amount 600 / 600 Other: # Voids 2 1 Exam: General: Alert, Awake, No acute Distress Eyes/N/T: EOMI, Head/Neck: neck supple, CV: RRR, No murmurs, normal s1/s2 Pulm: Clear b/l, no wheezing/rhonchi/rales Abd: soft, +BS x4 Ext: no clubbing/cyanosis/edema Neuro: Alert, no focal deficits, moves all extremities Skin: warm/dry Medical - PN: Obj Da - Labs CBC & Chem 7: 07/30/18 05:15 07/30/18 05:15 Labs: Abnormal Lab Results 07/30/18 07/30/18 07/28/18 05:15 05:15 08:20 WBC RBC 3.73 L Hgb 11.9 L Hct 35.3 L Gran # Humphreys # (Auto) 1.3 H Reactive Lymphocytes 6 H Carbon Dioxide BUN 7 L Glucose 07/28/18 07/28/18 05:12 05:12 WBC 15.1 H RBC 3.74 L Hgb Hct 35.2 L Gran # 9.0 H Humphreys # (Auto) 1.7 H Reactive Lymphocytes Carbon Dioxide 18 L BUN 5 L Glucose 109 H Meds: Medications Acetaminophen (Tylenol) 650 mg PO Q6HP PRN PRN Reason: PAIN/FEVER > 101 Last Admin: 07/29/18 10:12 Dose: 650 mg Albuterol/Ipratropium (Duoneb) 3 ml NEB Q4HRT PRN PRN Reason: wheezing Amitriptyline HCl (Elavil) 75 mg PO [facility] Last Admin: 07/29/18 21:36 Dose: 75 mg Clonidine HCl (Catapres) 0.1 mg PO Q6HP PRN PRN Reason: Hypertension Docusate Sodium (Colace) 100 mg PO BID [facility] Last Admin: 07/29/18 20:23 Dose: 100 mg Enoxaparin Sodium (Lovenox) 40 mg SQ DAILY [facility] Last Admin: 07/29/18 09:13 Dose: 40 mg Famotidine (Pepcid) 20 mg PO BID [facility] Last Admin: 07/29/18 20:23 Dose: 20 mg Hydroxyzine HCl (Atarax) 50 mg PO BIDP PRN PRN Reason: Anxiety Last Admin: 07/29/18 20:24 Dose: 50 mg Lisinopril (Zestril) 20 mg PO DAILY [facility] Last Admin: 07/29/18 09:12 Dose: 20 mg Lorazepam (Ativan) 1 mg PO Q6HP PRN PRN Reason: ANXIETY/SEDATION Last Admin: 07/30/18 02:52 Dose: 1 mg Nicotine (Nicoderm) 21 mg TOPICAL DAILY@1000 [facility] Last Admin: 07/29/18 09:36 Dose: 21 mg Ondansetron HCl (Zofran) 4 mg IV Q4HP PRN PRN Reason: Nausea And Vomiting Last Admin: 07/27/18 06:03 Dose: 4 mg Oxycodone/Acetaminophen (Percocet 5-325 Mg) 1 tab PO Q4HP PRN PRN Reason: PAIN LEVEL 3-6 Last Admin: 07/30/18 07:35 Dose: 1 tab Prochlorperazine Edisylate (Compazine) 5 mg IV Q6HP PRN PRN Reason: Nausea And Vomiting Prochlorperazine Maleate (Compazine) 12.5 mg [place] Q12HP PRN PRN Reason: Nausea And Vomiting Promethazine HCl (Phenergan) 12.5 mg PO Q6HP PRN PRN Reason: Nausea And Vomiting Propranolol HCl (Inderal) 40 mg PO BID [facility] Last Admin: 07/29/18 20:23 Dose: 40 mg Quetiapine Fumarate (Seroquel) 100 mg PO BID [facility] Last Admin: 07/29/18 20:23 Dose: 100 mg Scopolamine (Transderm-Scop) 1 patch TOPICAL Q72H [facility] Last Admin: 07/29/18 19:07 Dose: 1 patch Sodium Chloride (Saline Flush) 10 ml IV Q8 [facility] Last Admin: 07/30/18 04:36 Dose: Not Given Medical - PN: A/P - Time Spent With Patient Total time spent is greater than 50% in coordination of care (as documented) at patient's floor/unit and/or counseling patient: - Narrative A/P Narrative: A: *Intractable nausea/omiting: Differential includes cyclic vomiting including cannabis hyperemesis vs psychogenic vs less likely gastroparesis - appears more PSYchogenic -CT abd/pelv no acute pathology or evidence of GOO. -emesis was bilious in nature on admit -Improving *Severe anxiety/Depression: Has been off anxiety medications for 6mods. was on diazepam -multiple ED visits for Anxiety -improved today *Hypertension: has been getting BP med refills through the ED, propranolol/ lisinopril/hydralazine *Chronic pain: Has been off pain medications for 6mos. was on dilaudid *Tobacco abuse: Now quitting * P: -Antiemetics/scopolamine patch -on seroquel, consider decreasing or amitriptyline -Dr. Stanley following -PRN pain medications including Toradol -Gastric emptying study unable to be performed by pt -PRN Ativan -smoking cessation counseling, nicotine patch -cont lisinopril/propranolol, d/c hydralazine -will need to f/u with Psych -ppx: Lovenox Medical - PN: Qual - Stroke Symptom Onset Unknown: No - VTE Deep Vein Thrombosis/Pulmonary Embolism Present on Admission: No
[2018-07-30] MEDS: DOCUSATE SODIUM 100 MG CAPSULE PO SCH ×2 (08:46→19:31)
[2018-07-30] MEDS: PROPRANOLOL 40 MG TABLET PO SCH ×2 (08:46→19:31)
[2018-07-30] MEDS: FAMOTIDINE 20 MG TABLET PO SCH ×2 (08:46→19:32)
[2018-07-30] MEDS: NICOTINE 21 MG PATCH TOPICAL SCH (08:46)
[2018-07-30] MEDS: QUEtiapine 100 MG TABLET PO SCH (08:46)
[2018-07-30] MEDS: LISINOPRIL 20 MG TABLET PO SCH (08:46)
[2018-07-30] MEDS: ENOXAPARIN 40 MG/0.4 ML SYRINGE SQ SCH (08:46)
[2018-07-30 13:51] LABS: HCG,Serum NEGATIVE <10 (<10 mIU/ml)
[2018-07-30] MEDS ORDERED: chlorproMAZINE 25 MG TABLET PO PRN (14:34)
[2018-07-30] MEDS ORDERED: MAGNESIUM HYDROXIDE 30 ML ORAL.SUSP PO PRN (19:22)
[2018-07-30] MEDS ORDERED: FLEETS ADULT ENEMA PR PRN (19:22)
[2018-07-30] MEDS ORDERED: BISACODYL 10 MG SUPP.RECT PR PRN (19:22)
[2018-07-30] MEDS ORDERED: MAGNESIUM HYDROXIDE 30 ML ORAL.SUSP ONE (19:32)
[2018-07-30] MEDS: traZODone HCL 50 MG TABLET PO SCH (21:45)
[2018-07-31] MEDS: LORazepam 1 MG TABLET PO PRN (03:36)
[2018-07-31] MEDS: oxyCODONE/APAP 5/325MG TABLET PO PRN (05:17)
[2018-07-31] MEDS: 0.9 % SODIUM CHLORIDE 10 ML SYRINGE IV SCH ×3 (05:18→22:28)
[2018-07-31] MEDS ORDERED: LORazepam 1 MG TABLET PO ONE (06:51)
--- NOTE | 2018-07-31 06:52 | Internal Med Progress Note ---
Medical - PN: Subj Patient information: Note initiated : 07/31/18 at 6:46 am Service Date, if different from initiated Date: [] Patient: Nida Ramirez a 63 y/o F admitted on 07/26/18 for anxiety. Chief Complaint: [] Interval history: Ms. Ramirez is a 63 year old F With history of chronic pain anxiety who comes in with nausea vomiting intractable progressing since Sunday. She said she woke up this morning she typically does very nauseous could not get it under control. She said it started Sunday. With no inciting causes that she is aware of. She says she has had nausea vomiting more or less chronically since being taken off Dilaudid and diazepam and Flexeril in December when she ran out of her medications because she stopped going to her primary care provider and is trying to find a new one. In the ER they are unable to get her nausea vomiting under control with multiple medications she is found to have a little bit of lactate elevation likely from all the nausea vomiting fluid deprivation. A CT abdomen pelvis is done which is no acute pathology. She does report early satiety may be some bloating. She denies any vertigo no diarrhea she has diffuse achy abdominal pain she reports mostly from muscle pain from vomiting. She has been able to keep anything down for several days. She Uses marijuana daily. She has not been on any anxiety medications at home or pain medications at home for some time. She seems to have some temporary improvement while I was visiting her in the ED at this point. 07/27 Last episode of nausea vomiting was middle the night. Did get some sleep last night. Feeling better does have some nausea. Does have chronic cough. And complains of a mild headache. Denies getting any narcotics or benzodiazepines on the street. 07/28 Refused amitriptyline last night. Did not take this morning. Describes some nausea throughout night. Nurse reports no real emesis just spit up. 07/29 Patient became confused last night and had visual hallucinations. With agitations. But finally fell asleep. Woke up feeling much improved. She states she felt better than she has in a long time. First good night sleep in a long time. No nausea/vomiting this morning. No headaches. 07/30 Became agitated again in the evening, apparently some little bit hallucinations in the middle of night. Patient feels good today. Very minor episode of nausea but quickly went away. Patient feels that she had more of an adverse reaction from amitriptyline than any of the other medications. 07/31 pt developed worsening psychosis yesterday. Sometimes she will be clear conversation but more frequently lately she is becoming increasingly incoherent far as following along with her conversation. After talking with multiple staff members as well as my experience with her, some of the things that have been occurring include: Seeing a puppies, slapping a bug on a table, seeing people in room air including a unicorn, she is impulsive, she is tangential in her thought process , flight of ideas, hard to direct her during a conversation, she is talking about her baby at one point, she was rummaging through the nurses station looking for scissors she told me she was looking for them to cut open a package , she left walked out the hospital several times today and be redirected back into the hospital. Given her worsening psychosis, resolution of intractable nausea vomiting, and inability to place her given her current condition - I have called [place] transfer center yesterday to try to get her placed inpatient. We sent over the requested information and our currently waiting for a reply Per nursing notes patient did not sleep very much last night. Talking constantly. When I saw her this morning she was in the hallway in wheelchair with the staff obtaining vital signs. She was calm and cooperative but was constantly talking. She does state that she has had some visual hallucinations of seeing people but seems to be aware that she is hallucinating. At one point she felt like she was on a ship. But she is aware that she is in the hospital when asked which when she is at [place] and then I told her we were at [facility] and she said "oh yea[place] Review of Systems: headache, occasional cough, no nausea/vomiting. denies fever/chills/chest or abdominal pain/cough/dyspnea/diarrhea. Otherwise see above. - Constitutional Vitals: Vital Signs Temp Pulse Resp BP Pulse Ox 98.2 F 85 20 139/72 96 07/31/18 03:03 07/31/18 03:03 07/31/18 03:03 07/31/18 03:03 07/31/18 03:03 Period Temp Pulse Resp BP Sys/Mckinnon Pulse Ox Last 24 Hr 97.0 F-98.7 F 79-91 16-22 111-141/50-87 95-98 Intake and Output 07/30/18 07/31/18 07/31/18 21:59 05:59 13:59 Intake Total 740 / 740 940 / 940 Balance 740 / 740 940 / 940 Weight 59.874 kg Intake & Output: Intake & Output 07/30/18 07/31/18 07/31/18 21:59 05:59 13:59 Intake Total 740 / 740 940 / 940 Balance 740 / 740 940 / 940 Weight 59.874 kg Intake: Oral 740 / 740 940 / 940 Other: # Voids 3 1 Exam: General: Alert, Awake, No acute Distress Eyes/N/T: EOMI, Head/Neck: neck supple, CV: RRR, No murmurs, normal s1/s2 Pulm: Clear b/l, no wheezing/rhonchi/rales Abd: soft, +BS x4 Ext: no clubbing/cyanosis/edema Neuro: Alert, no focal deficits, moves all extremities Skin: warm/dry Psych: circumstantial speech, visual hallucinations that she is aware of, pt is coopertive Medical - PN: Obj Da - Labs CBC & Chem 7: 07/30/18 05:15 07/30/18 05:15 Labs: Abnormal Lab Results 07/30/18 07/30/18 07/28/18 05:15 05:15 08:20 RBC 3.73 L Hgb 11.9 L Hct 35.3 L [place] # (Auto) 1.3 H Reactive Lymphocytes 6 H Carbon Dioxide BUN 7 L Glucose 07/28/18 05:12 RBC Hgb Hct [place] # (Auto) Reactive Lymphocytes Carbon Dioxide 18 L BUN 5 L Glucose 109 H Meds: Medications Acetaminophen (Tylenol) 650 mg PO Q6HP PRN PRN Reason: PAIN/FEVER > 101 Last Admin: 07/29/18 10:12 Dose: 650 mg Albuterol/Ipratropium (Duoneb) 3 ml NEB Q4HRT PRN PRN Reason: wheezing Bisacodyl (Dulcolax) 10 mg UT Q2-3DAYS PRN PRN Reason: Constipation Clonidine HCl (Catapres) 0.1 mg PO Q6HP PRN PRN Reason: Hypertension Docusate Sodium (Colace) 100 mg PO BID [facility] Last Admin: 07/30/18 19:31 Dose: 100 mg Enoxaparin Sodium (Lovenox) 40 mg SQ DAILY [facility] Last Admin: 07/30/18 08:46 Dose: 40 mg Famotidine (Pepcid) 20 mg PO BID [facility] Last Admin: 07/30/18 19:32 Dose: 20 mg Lisinopril (Zestril) 20 mg PO DAILY [facility] Last Admin: 07/30/18 08:46 Dose: 20 mg Lorazepam (Ativan) 1 mg PO Q6HP PRN PRN Reason: ANXIETY/SEDATION Last Admin: 07/31/18 03:36 Dose: 1 mg Magnesium Hydroxide (Milk Of Magnesia) 30 ml PO DAILYP PRN PRN Reason: Constipation Nicotine (Nicoderm) 21 mg TOPICAL DAILY@1000 [facility] Last Admin: 07/30/18 08:46 Dose: 21 mg Ondansetron HCl (Zofran) 4 mg IV Q4HP PRN PRN Reason: Nausea And Vomiting Last Admin: 07/27/18 06:03 Dose: 4 mg Oxycodone/Acetaminophen (Percocet 5-325 Mg) 1 tab PO Q4HP PRN PRN Reason: PAIN LEVEL 3-6 Last Admin: 07/31/18 05:17 Dose: 1 tab Promethazine HCl (Phenergan) 12.5 mg PO Q6HP PRN PRN Reason: Nausea And Vomiting Propranolol HCl (Inderal) 40 mg PO BID [facility] Last Admin: 07/30/18 19:31 Dose: 40 mg Sodium Biphosphate/Sodium Phosphate (Fleets Adult) 1 dose UT Q3-4DAYS PRN PRN Reason: Constipation Sodium Chloride (Saline Flush) 10 ml IV Q8 [facility] Last Admin: 07/31/18 05:18 Dose: Not Given Trazodone HCl (Desyrel) 50 mg PO HS [facility] Last Admin: 07/30/18 21:45 Dose: 50 mg Medical - PN: A/P - Time Spent With Patient Total time spent is greater than 50% in coordination of care (as documented) at patient's floor/unit and/or counseling patient: - Narrative A/P Narrative: A: *Intractable nausea/vomiting: Differential includes cyclic vomiting including cannabis hyperemesis vs psychogenic vs less likely gastroparesis - appears more PSYchogenic -CT abd/pelv no acute pathology or evidence of GOO. -emesis was bilious in nature on admit -Gastric emptying study unable to be performed by pt -Improved *Severe anxiety/Depression: Has been off anxiety medications for 6mods. was on diazepam -multiple ED visits for Anxiety - *Psychosis w/delusions: visual hallucination, flight of ideas with tangential and sometime circumstantial speech and pressure speech, agitation -?anticholingergic meds + Underlying condition *Hypertension: has been getting BP med refills through the ED, propranolol/ lisinopril/hydralazine *Chronic pain: Has been off pain medications for 6mos. was on dilaudid *Tobacco abuse: Now quitting P: -Antiemetics -prn ativan, will schedule -qhs trazodone -seroquel/amitriptyline held -Dr. Stanley following, no need for EGD at this time -PRN pain medications - -smoking cessation counseling, nicotine patch -cont lisinopril/propranolol, d/c hydralazine -will need to f/u with Psych; attempting to transfer to inpt facility -ppx: Lovenox Medical - PN: Qual - Stroke Symptom Onset Unknown: No - VTE Deep Vein Thrombosis/Pulmonary Embolism Present on Admission: No
[2018-07-31] MEDS: LISINOPRIL 20 MG TABLET PO SCH (08:28)
[2018-07-31] MEDS: ENOXAPARIN 40 MG/0.4 ML SYRINGE SQ SCH (08:28)
[2018-07-31] MEDS: DOCUSATE SODIUM 100 MG CAPSULE PO SCH ×2 (08:28→21:00)
[2018-07-31] MEDS: FAMOTIDINE 20 MG TABLET PO SCH ×2 (08:28→21:00)
[2018-07-31] MEDS: NICOTINE 21 MG PATCH TOPICAL SCH (08:28)
[2018-07-31] MEDS: PROPRANOLOL 40 MG TABLET PO SCH ×2 (08:28→21:00)
[2018-07-31] MEDS ORDERED: OLANZapine 5 MG TABLET PO ONE (11:22)
[2018-07-31] MEDS: LORazepam 1 MG TABLET PO SCH ×2 (13:23→22:09)
--- NOTE | 2018-07-31 13:32 | Cat Scan Report ---
CLINICAL INFORMATION: Decreased mental status COMPARISON: None. TECHNIQUE: 2.5 mm helical slices were obtained in the skull base to vertex. Following reconstruction, axial reformatted images were reviewed at bone and parenchymal windows. The exam was performed using radiation dose optimization techniques including, but not limited to, automated exposure control, adjustment of the mA and/or kV according to patient size and use of iterative reconstruction technique. FINDINGS: The ventricles, sulci, fissures, and cisterns are normal in size and configuration. No extra-axial fluid collections are identified. The cerebrum, brainstem and cerebellum are unremarkable. There is no evidence of hemorrhage, mass effect, or edema. Bone windows show no osseous abnormality. IMPRESSION: Normal head CT without contrast. Interpreted and Authenticated by: Higinio Watts 07/31/18
[2018-07-31] MEDS: traZODone HCL 50 MG TABLET PO SCH (21:00)
[2018-08-01] MEDS: oxyCODONE/APAP 5/325MG TABLET PO PRN (01:03)
[2018-08-01] MEDS: LORazepam 1 MG TABLET PO SCH ×5 (01:04→21:31)
[2018-08-01] MEDS: ACETAMINOPHEN 325 MG TABLET PO PRN ×2 (04:32→21:31)
[2018-08-01] MEDS: 0.9 % SODIUM CHLORIDE 10 ML SYRINGE IV SCH ×3 (06:21→21:38)
[2018-08-01 06:23] LABS: ALT/SGPT 8 U/l (0-40); Albumin 3.7 gm/dL (3.2-5.2); Albumin/Globulin Ratio 1.4 (1.0-2.3); Alkaline Phosphatase 70 U/L (39-117); Bilirubin,Direct < 0.2 mg/dL (0.0-0.3); Blood Urea Nitrogen 9 mg/dl (8-23); Gamma Glutamyl Transpeptidase 16 U/L (5-36); Uric Acid 3.4 mg/dL (2.5-8.0)
--- NOTE | 2018-08-01 06:55 | Internal Med Progress Note ---
Medical - PN: Subj Patient information: Note initiated : 08/01/18 at 6:48 am Service Date, if different from initiated Date: [] Patient: Nida Ramirez a 63 y/o F admitted on 07/26/18 for anxiety. Chief Complaint: [] Interval history: Ms. Ramirez is a 63 year old F With history of chronic pain anxiety who comes in with nausea vomiting intractable progressing since Sunday. She said she woke up this morning she typically does very nauseous could not get it under control. She said it started Sunday. With no inciting causes that she is aware of. She says she has had nausea vomiting more or less chronically since being taken off Dilaudid and diazepam and Flexeril in December when she ran out of her medications because she stopped going to her primary care provider and is trying to find a new one. In the ER they are unable to get her nausea vomiting under control with multiple medications she is found to have a little bit of lactate elevation likely from all the nausea vomiting fluid deprivation. A CT abdomen pelvis is done which is no acute pathology. She does report early satiety may be some bloating. She denies any vertigo no diarrhea she has diffuse achy abdominal pain she reports mostly from muscle pain from vomiting. She has been able to keep anything down for several days. She Uses marijuana daily. She has not been on any anxiety medications at home or pain medications at home for some time. She seems to have some temporary improvement while I was visiting her in the ED at this point. 07/27 Last episode of nausea vomiting was middle the night. Did get some sleep last night. Feeling better does have some nausea. Does have chronic cough. And complains of a mild headache. Denies getting any narcotics or benzodiazepines on the street. 07/28 Refused amitriptyline last night. Did not take this morning. Describes some nausea throughout night. Nurse reports no real emesis just spit up. 07/29 Patient became confused last night and had visual hallucinations. With agitations. But finally fell asleep. Woke up feeling much improved. She states she felt better than she has in a long time. First good night sleep in a long time. No nausea/vomiting this morning. No headaches. 07/30 Became agitated again in the evening, apparently some little bit hallucinations in the middle of night. Patient feels good today. Very minor episode of nausea but quickly went away. Patient feels that she had more of an adverse reaction from amitriptyline than any of the other medications. 07/31 pt developed worsening psychosis yesterday. Sometimes she will be clear conversation but more frequently lately she is becoming increasingly incoherent far as following along with her conversation. After talking with multiple staff members as well as my experience with her, some of the things that have been occurring include: Seeing a puppies, slapping a bug on a table, seeing people in room air including a unicorn, she is impulsive, she is tangential in her thought process , flight of ideas, hard to direct her during a conversation, she is talking about her baby at one point, she was rummaging through the nurses station looking for scissors she told me she was looking for them to cut open a package , she left walked out the hospital several times today and be redirected back into the hospital. Given her worsening psychosis, resolution of intractable nausea vomiting, and inability to place her given her current condition - I have called [facility] transfer center yesterday to try to get her placed inpatient. We sent over the requested information and our currently waiting for a reply Per nursing notes patient did not sleep very much last night. Talking constantly. When I saw her this morning she was in the hallway in wheelchair with the staff obtaining vital signs. She was calm and cooperative but was constantly talking. She does state that she has had some visual hallucinations of seeing people but seems to be aware that she is hallucinating. At one point she felt like she was on a ship. But she is aware that she is in the hospital when asked which when she is at [place] and then I told her we were at [facility] and she said "oh yea, [place]. [place] Slept all yesterday afternoon and evening until about 1. Woke up and talk to nursing staff was conversant mentation was clear was crying because of how she knew she was acting during the past couple days. Fell back asleep while later. He woke up this morning alert and oriented cooperative understanding no hallucinations she is relaxed. Significantly improved no pains or complaints no nausea. Review of Systems: headache, occasional cough, no nausea/vomiting. denies fever/chills/chest or abdominal pain/cough/dyspnea/diarrhea. Otherwise see above. - Constitutional Vitals: Vital Signs Temp Pulse Resp BP Pulse Ox 97.9 F 82 18 106/61 95 08/01/18 02:47 08/01/18 03:33 08/01/18 03:33 08/01/18 03:33 08/01/18 03:33 Period Temp Pulse Resp BP Sys/Mckinnon Pulse Ox Last 24 Hr 97.6 F-99 F 76-100 16-20 106-155/45-74 92-97 Intake and Output 07/31/18 08/01/18 08/01/18 21:59 05:59 13:59 Intake Total 600 / 600 240 / 240 Balance 600 / 600 240 / 240 Weight 60.781 kg Intake & Output: Intake & Output 07/31/18 08/01/18 08/01/18 21:59 05:59 13:59 Intake Total 600 / 600 240 / 240 Balance 600 / 600 240 / 240 Weight 60.781 kg Intake: Oral 600 / 600 240 / 240 Other: Urine Color Bright Yellow Urine Odor Normal # Voids 1 1 Exam: General: Alert, Awake, No acute Distress Eyes/N/T: EOMI, Head/Neck: neck supple, CV: RRR, No murmurs, normal s1/s2 Pulm: Clear b/l, no wheezing/rhonchi/rales Abd: soft, +BS x4 Ext: no clubbing/cyanosis/edema Neuro: Alert, no focal deficits, moves all extremities Skin: warm/dry Psych: Mood appropriate Medical - PN: Obj Da - Labs CBC & Chem 7: 07/30/18 05:15 08/01/18 04:07 Labs: Abnormal Lab Results 08/01/18 07/30/18 07/30/18 04:07 05:15 05:15 RBC 3.73 L Hgb 11.9 L Hct 35.3 L [place] # (Auto) 1.3 H BUN 7 L Glucose 129 H Meds: Medications Acetaminophen (Tylenol) 650 mg PO Q6HP PRN PRN Reason: PAIN/FEVER > 101 Last Admin: 08/01/18 04:32 Dose: 650 mg Albuterol/Ipratropium (Duoneb) 3 ml NEB Q4HRT PRN PRN Reason: wheezing Bisacodyl (Dulcolax) 10 mg AR Q2-3DAYS PRN PRN Reason: Constipation Clonidine HCl (Catapres) 0.1 mg PO Q6HP PRN PRN Reason: Hypertension Docusate Sodium (Colace) 100 mg PO BID [facility] Last Admin: 07/31/18 21:00 Dose: Not Given Enoxaparin Sodium (Lovenox) 40 mg SQ DAILY [facility] Last Admin: 07/31/18 08:28 Dose: 40 mg Famotidine (Pepcid) 20 mg PO BID [facility] Last Admin: 07/31/18 21:00 Dose: Not Given Lisinopril (Zestril) 20 mg PO DAILY [facility] Last Admin: 07/31/18 08:28 Dose: 20 mg Lorazepam (Ativan) 1 mg PO Q6HP PRN PRN Reason: ANXIETY/SEDATION Last Admin: 07/31/18 03:36 Dose: 1 mg Lorazepam (Ativan) 1 mg PO Q6H [facility] Last Admin: 08/01/18 01:04 Dose: 1 mg Magnesium Hydroxide (Milk Of Magnesia) 30 ml PO DAILYP PRN PRN Reason: Constipation Last Admin: 08/01/18 04:49 Dose: 30 ml Nicotine (Nicoderm) 21 mg TOPICAL DAILY@1000 [facility] Last Admin: 07/31/18 08:28 Dose: 21 mg Olanzapine (Zyprexa) [address] [facility] Ondansetron HCl (Zofran) 4 mg IV Q4HP PRN PRN Reason: Nausea And Vomiting Last Admin: 07/27/18 06:03 Dose: 4 mg Oxycodone/Acetaminophen (Percocet 5-325 Mg) 1 tab PO Q4HP PRN PRN Reason: PAIN LEVEL 3-6 Last Admin: 08/01/18 01:03 Dose: 1 tab Promethazine HCl (Phenergan) 12.5 mg PO Q6HP PRN PRN Reason: Nausea And Vomiting Propranolol HCl (Inderal) 40 mg PO BID [facility] Last Admin: 07/31/18 21:00 Dose: Not Given Sodium Biphosphate/Sodium Phosphate (Fleets Adult) 1 dose AR Q3-4DAYS PRN PRN Reason: Constipation Sodium Chloride (Saline Flush) 10 ml IV Q8 [facility] Last Admin: 08/01/18 06:21 Dose: Not Given Trazodone HCl (Desyrel) [address] [facility] Last Admin: 07/31/18 21:00 Dose: Not Given Medical - PN: A/P - Time Spent With Patient Total time spent is greater than 50% in coordination of care (as documented) at patient's floor/unit and/or counseling patient: - Narrative A/P Narrative: A: *Intractable nausea/vomiting: Psychogenic vs cannabis hyperemesis -CT abd/pelv no acute pathology or evidence of GOO. -emesis was bilious in nature on admit -Gastric emptying study unable to be performed by pt -Improved *Psychosis w/delusions-Manic: visual hallucination, flight of ideas with tangential and sometime circumstantial speech and pressure speech, agitation -?anticholingergic meds + Underlying condition -ekg qt 430 on f/u -Greatly Improved this morning, finally slept well yesterday evening *Severe anxiety/Depression: Has been off anxiety medications for 6mods. was on diazepam -multiple ED visits for Anxiety - *Hypertension: has been getting BP med refills through the ED, propranolol/ lisinopril/hydralazine *Chronic pain: Has been off pain medications for 6mos. was on dilaudid *Tobacco abuse: Now quitting P: -Antiemetics -zyprexa and Ativan, did discuss case with [facility] etl application developer -qhs trazodone -PRN pain medications - -smoking cessation counseling, nicotine patch -cont lisinopril(decrease)/propranolol, d/c'd hydralazine -will need to f/u with Psych; -ppx: Lovenox Medical - PN: Qual - Stroke Symptom Onset Unknown: No - VTE Deep Vein Thrombosis/Pulmonary Embolism Present on Admission: No
[2018-08-01] MEDS: FAMOTIDINE 20 MG TABLET PO SCH ×2 (08:42→21:31)
[2018-08-01] MEDS: LISINOPRIL 20 MG TABLET PO SCH (08:42)
[2018-08-01] MEDS: LORazepam 1 MG TABLET PO PRN (08:42)
[2018-08-01] MEDS: DOCUSATE SODIUM 100 MG CAPSULE PO SCH ×2 (08:42→21:30)
[2018-08-01] MEDS: ENOXAPARIN 40 MG/0.4 ML SYRINGE SQ SCH (08:42)
[2018-08-01] MEDS: PROPRANOLOL 40 MG TABLET PO SCH ×2 (08:42→21:30)
[2018-08-01] MEDS: NICOTINE 21 MG PATCH TOPICAL SCH (08:42)
[2018-08-01] MEDS ORDERED: OLANZapine 5 MG TABLET PO SCH (21:00)
[2018-08-01] MEDS: traZODone HCL 50 MG TABLET PO SCH (21:31)
[2018-08-02] MEDS: ACETAMINOPHEN 325 MG TABLET PO PRN (04:12)
[2018-08-02] MEDS: 0.9 % SODIUM CHLORIDE 10 ML SYRINGE IV SCH (06:40)
[2018-08-02] MEDS: LORazepam 1 MG TABLET PO SCH ×2 (06:40→07:08)
[2018-08-02] MEDS: LISINOPRIL 20 MG TABLET PO SCH (09:31)
[2018-08-02] MEDS: DOCUSATE SODIUM 100 MG CAPSULE PO SCH (09:31)
[2018-08-02] MEDS: ENOXAPARIN 40 MG/0.4 ML SYRINGE SQ SCH (09:31)
[2018-08-02] MEDS: FAMOTIDINE 20 MG TABLET PO SCH (09:31)
[2018-08-02] MEDS: PROPRANOLOL 40 MG TABLET PO SCH (09:31)
[2018-08-02] MEDS: NICOTINE 21 MG PATCH TOPICAL SCH (09:31)
--- NOTE | 2018-08-02 10:15 | Discharge Summary ---
Medical - DS: Prov Patient information: Note initiated : 08/02/18 at 10:12 am Service Date, if different from initiated Date: [] Patient: Nida Ramirez 63 y/o F admitted on 07/26/18 for anxiety. Chief Complaint: [] Date of admission: 07/26/18 19:13 Discharge date: 08/02/18 Admitting clinician: Harlan Leija Consults: 07/26/18 Consult to Physician [CONS] Stat Comment: Consulting Provider: Harlan Leija Reason For Exam: Physician to Consult 07/27/18 11:29 Consult to Physician [CONS] Routine Comment: nausea/vomiting Consulting Provider: Mague Stanley Reason For Exam: Physician to Consult Discharging clinician: Dora Natarajan Medical - DS: Meds - Discharge Medications Prescriptions: Famotidine [Pepcid AC] 20 mg PO DAILY #30 tab LORazepam [Ativan] 1 mg PO Q8HP PRN #30 tab PRN Reason: Anxiety Nicotine [Nicotine Patch] 1 each TD DAILY #30 patch.dysq OLANZapine [Zyprexa] 10 mg PO HS #30 tab Ondansetron HCl [Zofran ODT] 4 mg SL Q4HP PRN #40 tab PRN Reason: Nausea Active and Home Medications: Home Medications propranolol 80 mg tablet 40 mg PO BID #60 tab 02/13/18 [Rx Confirmed 07/26/18 Last Taken 07/26/18 04:30] Lisinopril [Zestril] 20 mg PO DAILY 30 Days #30 tab 06/29/18 [Rx Confirmed 07/26 Last Taken 07/26/18 04:30] hydrOXYzine HCL [Hydroxyzine HCl] 50 mg PO BID 30 Days #60 tab 06/29/18 [Rx Confirmed 07/26/18 Last Taken 07/26/18 04:30] Famotidine [Pepcid AC] 20 mg PO DAILY #30 tab 07/27/18 [Rx Last Taken Unknown] LORazepam [Ativan] 1 mg PO Q8HP PRN #30 tab 07/27/18 [Rx Last Taken Unknown] Ondansetron HCl [Zofran ODT] 4 mg SL Q4HP PRN #40 tab 07/27/18 [Rx Last Taken Unknown] Nicotine [Nicotine Patch] 1 each TD DAILY #30 patch.dysq 07/28/18 [Rx Last Taken Unknown] Lisinopril [Zestril] 20 mg PO DAILY tablet 07/30/18 [Rx Last Taken Unknown] Medical - DS: Hosp Hospital course: Summary: The patient was initially admitted to hospital with intractable nausea and vomiting. She was seen in consultation by general surgery. CT showed no evidence of gastric outlet obstruction. She had been using daily cannabis. Etiology is felt to be possibly anxiety related versus hyperemesis related to cannabis use. As her nausea and vomiting resolved, the patient developed acute psychosis. Etiologies included possible anticholinergic effect of medications. Consideration was made for inpatient placement for further treatment, however patient's symptoms resolved approximately 48 hours prior to discharge and remained stable through the rest of her hospitalization. She'll be resumed on anti-anxiety medications, including olanzapine at bedtime as well as when necessary lorazepam. She was seen by mental health and cleared. Detailed Course: 07/26 Ms. Ramirez is a 63 year old F with history of chronic pain anxiety who comes in with nausea vomiting intractable progressing since Sunday. She said she woke up this morning she typically does very nauseous could not get it under control. She said it started Sunday. With no inciting causes that she is aware of. She says she has had nausea vomiting more or less chronically since being taken off Dilaudid and diazepam and Flexeril in December when she ran out of her medications because she stopped going to her primary care provider and is trying to find a new one. In the ER they are unable to get her nausea vomiting under control with multiple medications she is found to have a little bit of lactate elevation likely from all the nausea vomiting fluid deprivation. A CT abdomen pelvis is done which is no acute pathology. She does report early satiety may be some bloating. She denies any vertigo no diarrhea she has diffuse achy abdominal pain she reports mostly from muscle pain from vomiting. She has been able to keep anything down for several days. She Uses marijuana daily. She has not been on any anxiety medications at home or pain medications at home for some time. She seems to have some temporary improvement while I was visiting her in the ED at this point. 07/27 Last episode of nausea vomiting was middle the night. Did get some sleep last night. Feeling better does have some nausea. Does have chronic cough. And complains of a mild headache. Denies getting any narcotics or benzodiazepines on the street. 07/28 Refused amitriptyline last night. Did not take this morning. Describes some nausea throughout night. Nurse reports no real emesis just spit up. 07/29 Patient became confused last night and had visual hallucinations. With agitations. But finally fell asleep. Woke up feeling much improved. She states she felt better than she has in a long time. First good night sleep in a long time. No nausea/vomiting this morning. No headaches. 07/30 Became agitated again in the evening, apparently some little bit hallucinations in the middle of night. Patient feels good today. Very minor episode of nausea but quickly went away. Patient feels that she had more of an adverse reaction from amitriptyline than any of the other medications. 07/31 pt developed worsening psychosis yesterday. Sometimes she will be clear conversation but more frequently lately she is becoming increasingly incoherent far as following along with her conversation. After talking with multiple staff members as well as my experience with her, some of the things that have been occurring include: Seeing a puppies, slapping a bug on a table, seeing people in room air including a unicorn, she is impulsive, she is tangential in her thought process , flight of ideas, hard to direct her during a conversation, she is talking about her baby at one point, she was rummaging through the nurses station looking for scissors she told me she was looking for them to cut open a package , she left walked out the hospital several times today and be redirected back into the hospital. Given her worsening psychosis, resolution of intractable nausea vomiting, and inability to place her given her current condition - I have called [facility] transfer center yesterday to try to get her placed inpatient. We sent over the requested information and our currently waiting for a reply Per nursing notes patient did not sleep very much last night. Talking constantly. When I saw her this morning she was in the hallway in wheelchair with the staff obtaining vital signs. She was calm and cooperative but was constantly talking. She does state that she has had some visual hallucinations of seeing people but seems to be aware that she is hallucinating. At one point she felt like she was on a ship. But she is aware that she is in the hospital when asked which when she is at [place] and then I told her we were at [facility] and she said "oh yea, [place]01 Slept all yesterday afternoon and evening until about 1. Woke up and talk to nursing staff was conversant mentation was clear was crying because of how she knew she was acting during the past couple days. Fell back asleep while later. He woke up this morning alert and oriented cooperative understanding no hallucinations she is relaxed. Significantly improved no pains or complaints no nausea. 08/02 Patient was seen by mental health yesterday and cleared. Remains awake, alert without hallucinations. He is calm and cooperative. No nausea. Feels ready for discharge. Discharge diagnosis: Intractable nausea/vomiting: Psychogenic vs cannabis hyperemesis Secondary discharge diagnosis: Psychosis w/delusions-Manic: visual hallucination, flight of ideas with tangential and sometime circumstantial speech and pressure speech, agitation -?anticholingergic meds + Underlying condition -Greatly improved by day prior to discharge, and remained stable Severe anxiety/Depression: Has been off anxiety medications for 6 mos. -multiple ED visits for Anxiety Hypertension: has been getting BP med refills through the ED, propranolol/ lisinopril/hydralazine Chronic pain: Has been off pain medications for 6mos. was on Dilaudid Tobacco abuse: Now quitting - Time Spent with Patient Total time spent providing and/or coordinating discharge services: Greater than 30 minutes Medical - DS: Exam - Constitutional Vitals: Vital Signs Temp Pulse Pulse Resp BP BP Pulse Ox 08/02/18 07:15 87 14 139/76 08/02/18 06:55 97.2 F 64 14 108/64 93 08/02/18 04:35 98.3 F 62 18 103/60 95 08/02/18 00:19 98.1 F 66 18 100/57 96 08/01/18 21:00 98.5 F 86 18 139/76 97 08/01/18 20:00 18 139/76 08/01/18 16:36 98.4 F 74 18 134/74 98 08/01/18 12:31 98.7 F 75 18 116/69 96 Intake and Output 08/01/18 08/02/18 08/02/18 21:59 05:59 13:59 Intake Total 800 / 800 420 / 420 Output Total Balance 800 / 800 419 / 419 Intake: Oral 800 / 800 420 / 420 Output: Void Amount Other: Urine Color Bright Yellow Bright Yellow Stool Size Small Stool Color Brown Stool Consistency Formed Heather # Voids 1 1 # Bowel Movements 3 1 Weight 134 lb Additional comments: General: Sitting up in chair in no acute distress Chest: Clear, unlabored Cardio vascular: Regular, no edema Abdomen: Soft, nontender Neuro: Alert, oriented to person, place, situation. Speech is normal and not pressured, thoughts are linear and non-tangential. No hallucinations. Medical - DS: Data - Imaging and Cardiology CT scan - head Additional comments: IMPRESSION: Normal head CT without contrast. CT scan - abdomen Additional comments: IMPRESSION: borderline thickened appendix which could be normal variant or early onset appendicitis. US - abdomen Additional comments: IMPRESSION: Three small polyps within the gallbladder. The exam is otherwise normal. Medical - DS: A/P - Patient/Caregiver Discharge Instructions Activity: increase activity as tolerated Diet: Regular Diet Additional Instructions: Discharge Instructions: Please keep your appointment with Dr Puckett as scheduled for anxiety and other medications needed as well as for any coordination for follow up psychiatric evaluations needed. Follow regular diet as tolerated at home. Take medications as directed by doctor. There are 2 new prescriptions for you to take to your pharmacy to have filled. You also have some new prescriptions that have been electronically sent to your pharmacy at [facility] and should be ready for you to orange picker today. Take all medications as directed. Enclosed you will find some information on new medications. Prescriptions: Famotidine [Pepcid AC] 20 mg PO DAILY #30 tab LORazepam [Ativan] 1 mg PO Q8HP PRN #30 tab PRN Reason: Anxiety Nicotine [Nicotine Patch] 1 each TD DAILY #30 patch.dysq OLANZapine [Zyprexa] 10 mg PO HS #30 tab Ondansetron HCl [Zofran ODT] 4 mg SL Q4HP PRN #40 tab PRN Reason: Nausea - Follow up Plan Follow up with: Nahed Puckett MD [Physician] - 08/05/18 11:00 am Disposition: Home, Self-Care Prognosis: Fair Rehab Potential: Fair I certify that the patient requires SNF services: No Overall status at discharge: patient is back to baseline Medical - DS: Qual - VTE Deep Vein Thrombosis/Pulmonary Embolism Present on Admission: No
== END 2018-08-02 11:45 | disposition home or self-care (01) | DRG 103 ==
LOC: ED 07:20 → MEDSUR 19:08
PROVIDERS: ADMIT Internal Medicine; ATTEND Internal Medicine
CPT/HCPCS: 99223; 99231; J0360; J0780; J1630; J1650; J1885; J2060; J2405; J2550; J2765; J7042; J7060; J7120; Q9967